=== PATIENT | female | born 2000 | race Caucasian/White ===

== ENCOUNTER 2020-06-18 08:08 | Outpatient (REF) | payer OTHER, SELFPAY | END 2020-06-18 08:09 | disposition home or self-care (01) | LOC: HO.LAB 08:08 | PROVIDERS: PCP Internal Medicine; Referring Provider Internal Medicine; Visit Provider Internal Medicine | DX: Z20.822 Contact with and (suspected) exposure to COVID-19 (principal) | CPT/HCPCS: 36415; C9803; U0003 ==

== ENCOUNTER 2020-06-26 14:17 | Outpatient (REF) | payer OTHER, SELFPAY ==
[2020-06-27 08:23] LABS: BV Int Neg Control Negative (Negative); BV Int Pos Control Positive (Positive)
[2020-06-27 09:57] LABS: C. trachomatis RNA TMA NOT DETECTED (NOT DETECTED); N. gonorrhoeae RNA TMA NOT DETECTED (NOT DETECTED)
== END 2020-06-26 14:18 | disposition home or self-care (01) ==
LOC: HO.LAB 14:17
PROVIDERS: Visit Provider Obstetrics & Gynecology
DX: Z01.419 Encounter for gynecological examination (general) (routine) without abnormal findings (principal)
CPT/HCPCS: 36415; 87480; 87491; 87510; 87591; 87660

== ENCOUNTER 2020-10-10 11:52 | Outpatient (REF) | payer OTHER, SELFPAY ==
[2020-10-13 22:46] LABS: TS Negative Control Passed; TS Panel A 1; TS Panel B 0; TS Positive Control Passed; TSpotTB Negative (SeeBelow)
== END 2020-10-10 11:53 | disposition home or self-care (01) ==
LOC: HO.LAB 11:52
PROVIDERS: PCP Internal Medicine; Visit Provider Internal Medicine
DX: Z01.84 Encounter for antibody response examination (principal)
CPT/HCPCS: 36415; 86481

== ENCOUNTER 2021-02-14 16:38 | Outpatient (REF) | payer OTHER, SELFPAY ==
--- NOTE | ~2021-02-14 | MR_ITS ---
EXAMINATION: MR BRAIN WITHOUT CONTRAST CLINICAL INFORMATION: Headaches. COMPARISON: None. TECHNIQUE: Multiplanar, multisequence imaging of the brain was performed without contrast. Limited study with motion artifacts. FINDINGS: No diffusion abnormalities are identified to suggest an acute or subacute infarct. The ventricles are normal in size. No mass effect or midline shift is seen. No brain parenchymal signal abnormality is noted. No extra-axial fluid collections are seen. The brainstem and cerebellum are normal. The gradient refocused acquisition is normal. The craniovertebral junction, marrow signal, and midline structures are normal. The major intracranial flow voids at the level of the [place] are preserved. The dural venous sinus flow voids are maintained. The mastoid air cells and paranasal sinuses are well aerated. MR/MR head/brain wo con IMPRESSION: Normal limited MRI of the brain with motion artifacts.
== END 2021-02-14 16:39 | disposition home or self-care (01) ==
LOC: HO.MRI 16:38
PROVIDERS: PCP Internal Medicine; Visit Provider Internal Medicine
DX: G44.52 New daily persistent headache (NDPH) (principal)
CPT/HCPCS: 70551

== ENCOUNTER 2021-06-13 14:46 | Outpatient (REF) | payer OTHER, SELFPAY ==
[2021-06-13 15:07] LABS: COVID-19 Test Positive (Negative); IDNOW Serial# 16C4AD1C
== END 2021-06-13 14:47 | disposition home or self-care (01) ==
LOC: HO.LAB 14:46
PROVIDERS: Visit Provider Internal Medicine
DX: Z20.822 Contact with and (suspected) exposure to COVID-19 (principal)
CPT/HCPCS: 87635; C9803

== ENCOUNTER 2021-07-02 09:17 | Outpatient (REF) | payer OTHER, SELFPAY ==
[2021-07-02 15:12] LABS: CT PCR NOT DETECTED (Not Detect.); NG PCR NOT DETECTED (Not Detect.)
[2021-07-03 08:50] LABS: BV Int Neg Control Negative (Negative); BV Int Pos Control Positive (Positive)
== END 2021-07-02 09:18 | disposition home or self-care (01) ==
LOC: HO.LAB 09:17
PROVIDERS: PCP Internal Medicine; Visit Provider Advanced Practice Midwife
DX: R10.2 Pelvic and perineal pain (principal); N89.8 Other specified noninflammatory disorders of vagina
CPT/HCPCS: 81003; 81025; 87480; 87491; 87510; 87591; 87660; 99212

== ENCOUNTER 2021-08-26 09:02 | Outpatient (REF) | payer OTHER, SELFPAY ==
[2021-08-26 18:08] LABS: CT PCR NOT DETECTED (Not Detect.); NG PCR NOT DETECTED (Not Detect.)
[2021-08-27 15:20] LABS: BV Int Neg Control Negative (Negative); BV Int Pos Control Positive (Positive)
[2021-09-12 04:28] LABS: HPV mRNA E6/E7 rflx Not Detected (Not Detected)
== END 2021-08-26 09:03 | disposition home or self-care (01) ==
LOC: HO.LAB 09:02
PROVIDERS: PCP Internal Medicine; Visit Provider Advanced Practice Midwife
DX: Z01.411 Encounter for gynecological examination (general) (routine) with abnormal findings (principal); N89.8 Other specified noninflammatory disorders of vagina; R10.2 Pelvic and perineal pain; Z20.2 Contact with and (suspected) exposure to infections with a predominantly sexual mode of transmission
CPT/HCPCS: 87480; 87491; 87510; 87591; 87624; 87660; 88142

== ENCOUNTER 2021-11-19 10:30 | Outpatient (REF) | payer OTHER, SELFPAY ==
[2021-11-19 14:50] LABS: CT PCR NOT DETECTED (Not Detect.); NG PCR NOT DETECTED (Not Detect.)
[2021-11-20 08:06] LABS: HBc Num1 0.04 S/CO (0.00-0.79); HIV AB/AG Nonreactive (Nonreactive); HIV Num 1 0.07 S/CO (0.00-0.99); Hepatitis B Core Antibody Nonreactive (Nonreactive); ~HepC Num1 0.09 S/CO (0.00-0.79); ~Hepatitis C Antibody Nonreactive (Nonreactive)
[2021-11-20 08:28] LABS: Syphilis Screen Nonreactive (Nonreactive)
[2021-11-20 10:03] LABS: BV Int Neg Control Negative (Negative); BV Int Pos Control Positive (Positive)
== END 2021-11-19 10:31 | disposition home or self-care (01) ==
LOC: HO.LAB 10:30
PROVIDERS: PCP Internal Medicine; Visit Provider Advanced Practice Midwife
DX: R10.2 Pelvic and perineal pain (principal); N89.8 Other specified noninflammatory disorders of vagina; N90.89 Other specified noninflammatory disorders of vulva and perineum; Z11.3 Encounter for screening for infections with a predominantly sexual mode of transmission; Z11.8 Encounter for screening for other infectious and parasitic diseases; Z11.4 Encounter for screening for human immunodeficiency virus [HIV]; Z11.59 Encounter for screening for other viral diseases
CPT/HCPCS: 36415; 81025; 86704; 86780; 86803; 87255; 87389; 87480; 87491; 87510; 87591; 87660; 99212

== ENCOUNTER 2022-04-03 09:28 | Outpatient (REF) | payer OTHER, SELFPAY ==
--- NOTE | ~2022-04-03 | XR_ITS ---
EXAMINATION: XR CHEST CLINICAL INFORMATION: Shortness of breath. COMPARISON: None TECHNIQUE: 2 views of the chest were obtained. FINDINGS: No significant abnormality is noted involving the heart, lungs, mediastinum, bony thorax or soft tissues. XR/XR chest 2V IMPRESSION: No acute cardiopulmonary process.
[2022-04-03 10:33] LABS: Syphilis Screen Nonreactive (Nonreactive)
[2022-04-03 10:34] LABS: Alanine Aminotransferase 18 U/L (0-31); Albumin Level 4.4 g/dL (3.5-5.0); Alkaline Phosphatase 52 U/L (39-117); Anion Gap 15 (12-20); Aspartate Amino Transferase 18 U/L (5-31); Bilirubin Total 1.4 mg/dL (0.0-1.0); Blood Urea Nitrogen 14 mg/dL (9-16); Calcium 9.1 mg/dL (8.4-10.2); Carbon Dioxide 26 mmol/L (22-29); Chloride 103 mmol/L (96-108); Cholesterol 183 mg/dL; Estimated Glomerular Filt Rate > 60; Glucose Fasting 83 mg/dL (60-99); HDL Cholesterol 88 mg/dL; LDL Cholesterol Calculated 78 mg/dl; Potassium 4.1 mmol/L (3.3-5.1); Sodium 140 mmol/L (135-145); Total Protein 7.4 g/dL (6.5-8.0); Triglycerides 86 mg/dL
[2022-04-03 10:36] LABS: HIV AB/AG Nonreactive (Nonreactive); HIV Num 1 0.08 S/CO (0.00-0.99)
[2022-04-03 11:19] LABS: Folate 16.6 ng/mL (> or = 4.0); Vitamin B12 476 pg/mL (200-900)
[2022-04-03 12:27] LABS: CT PCR NOT DETECTED (Not Detect.); NG PCR NOT DETECTED (Not Detect.)
== END 2022-04-03 09:29 | disposition home or self-care (01) ==
LOC: HO.LAB 09:28
PROVIDERS: PCP Internal Medicine; Visit Provider Internal Medicine
DX: Z00.00 Encounter for general adult medical examination without abnormal findings (principal); R06.02 Shortness of breath; R20.0 Anesthesia of skin; Z11.3 Encounter for screening for infections with a predominantly sexual mode of transmission; Z11.8 Encounter for screening for other infectious and parasitic diseases; Z11.4 Encounter for screening for human immunodeficiency virus [HIV]
CPT/HCPCS: 71046; 80053; 80061; 82607; 82746; 86780; 87389; 87491; 87591

== ENCOUNTER 2023-01-19 11:36 | Outpatient (AMB) | payer OTHER, SELFPAY ==
--- NOTE | 2023-01-19 11:43 | MHC.OFFWIV ---
Intake Vital Signs 01/19/23 11:50 Height 5 ft 7 in Weight 197 lb BMI 30.9 BP 120/72 Blood Pressure Location Lt brachial Position Sitting Pulse 94 Pulse Source Pulse Oximeter Temp 97.3 F Temp Source Temporal Artery Scan Pulse Oximetry (%) 100 Oxygen Delivery Method Room Air Intake Visit Reasons: EP ?UTI Intake Note: Pt is here c/o pressure/pain when urinating. Patient Tobacco Use Status: Never used Tobacco Allergies amoxicillin [AMOXICILLIN] Adverse Reaction (Intermediate, Verified 01/19/23 12:32) Diarrhea milk Adverse Reaction (Intermediate, Verified 01/19/23 12:32) WHOLE MILK- UPSET STOMACH Wellbutrin Allergy (Mild, Uncoded 01/19/23 12:32) unknown ANIMAL FAT Adverse Reaction (Intermediate, Uncoded 01/19/23 12:32) Diarrhea CHOCOLATE Adverse Reaction (Intermediate, Uncoded 01/19/23 12:32) DIARRHEA PEANUT BUTTER Adverse Reaction (Intermediate, Uncoded 01/19/23 12:32) Diarrhea Medication List - Last Reconciled 01/19/23 by Santino Shaffer MD desog-e.estradiol/e.estradiol 0.15-0.02 mgx21 /0.01 mg x 5 (Kariva (28)) 1 tab PO DAILY escitalopram oxalate 20 mg PO DAILY methylphenidate HCl 10 mg PO DAILY PRN phenazopyridine (Pyridium) 200 mg PO TID 3 days sulfamethoxazole-trimethoprim 800-160 mg (Bactrim DS) 1 tab PO BID 5 days Do you need a note to return to daycare/school/sports/work: No HPI EP ?UTI HPI Details Patient presents for a sick visit. Reports symptoms of increased frequency of urination, burning on urination and discomfort in the suprapubic area. Symptoms started in the past few days. No fevers or chills. No nausea or vomiting. [facility] Medical History ADD (attention deficit disorder) Mild recurrent major depression New daily persistent headache Surgical History No pertinent past surgical history Family History Mother No problems noted. Father No problems noted. Social History Housing: Apartment Alcohol intake: current Alcohol intake frequency: holidays/special occasions only Patient Tobacco Use Status: Never used Tobacco e-Cigarette/Vaping Use: Never Used Second Hand Smoke Exposure: Yes Substance Use Type: Marijuana service: No Current occupational status: employed Current occupational exposures/hazards: No Sexual orientation: Straight/Heterosexual Cognitive needs: No Hearing needs: No Vision needs: Yes Female Reproductive History Menstrual Age of Menarche: 13 Physical Exam Vital Signs: Last Vital Signs Temp 97.3 F 01/19/23 11:50 Pulse 94 01/19/23 11:50 BP 120/72 01/19/23 11:50 Pulse Ox 100 01/19/23 11:50 Oxygen Delivery Method Room Air 01/19/23 11:50 BMI result Body Mass Index 30.9 Const General: cooperative and healthy appearing Nutritional Appearance: well nourished Orientation/consciousness: patient oriented x3 Limitations: no limitations HEENT Head: Yes normal to inspection Eyes General: appearance normal, both eyes and all related structures Neck Neck: Yes normal visual inspection Chest Chest palpation & inspection: normal palpation of entire chest wall Resp Effort & Inspection: normal respiratory effort General: Yes bladder normal to palpation and Yes no CVA tenderness Bimanual exam- vagina & uterus: bladder normal to palpation Back/Spine/Pelvis Back: no CVA tenderness Neuro General: patient oriented x3 Results AMB Urinalysis, Automated UA Leukoctes 0 Robert/uL Last Edit by Areli Cao CMA on 01/19/23 11:53 UA Nitrite Negative Last Edit by Areli Cao CMA on 01/19/23 11:53 UA Urobilinogen 0.2 mg/dL Last Edit by Areli Cao CMA on 01/19/23 11:53 UA Protein 0 mg/dL Last Edit by Areli Cao CMA on 01/19/23 11:53 UA pH 6.0 Last Edit by Areli Cao CMA on 01/19/23 11:53 UA Blood 80 Kojo/uL Last Edit by Areli Cao CMA on 01/19/23 11:53 UA Specific [place] 1.030 Last Edit by Areli Cao CMA on 01/19/23 11:53 UA Ketone Negative Last Edit by Areli Cao CMA on 01/19/23 11:53 UA Bilirubin 0 mg/dL Last Edit by Areli Cao CMA on 01/19/23 11:53 UA Glucose 0 mg/dL Last Edit by Areli Cao CMA on 01/19/23 11:53 AMB Rapid Strep AMB Rapid Strep Cancelled Last Edit by Areli aCo CMA on 01/19/23 12:02 AMB Rapid Strep previously reported as Negative Areli Cao 01/19/23 12:02 CANCELLED strep was put in for the wrong person Results Reviewed Results Reviewed: Laboratory Last Values Urine pH (Auto) 6.0 01/19/23 11:51 Specific [place] (Auto) 1.030 01/19/23 11:51 Urine Protein (Auto) 0 mg/dL 01/19/23 11:51 Glucose (UA)(Auto) 0 mg/dL 01/19/23 11:51 Urine Ketones (Auto) Negative 01/19/23 11:51 Urine Blood (Auto) 80 Kojo/uL 01/19/23 11:51 Urine Nitrite (Auto) Negative 01/19/23 11:51 Urine Bilirubin (Auto) 0 mg/dL 01/19/23 11:51 Urine Urobilinogen (Auto) 0.2 mg/dL 01/19/23 11:51 Leukocyte Esterase (Auto) 0 Robert/uL 01/19/23 11:51 Strep Scn Rapid Clinic Cancelled 01/19/23 11:51 Assessment & Plan Assessment & Plan (1) Urinary tract infection: Code(s): N39.0 - Urinary tract infection, site not specified Plan: Take antibiotics and Pyridium as directed. Increase fluid intake. If symptoms of burning persist, new onset of fever or lower back pain, to follow-up at the clinic. Orders: Orders AMB Urinalysis Automated Today Z13.9 - Encounter for screening, unspecified Coding Level of Care Code Est Pt Level 3 (07210) Diagnoses Urinary tract infection N39.0
[2023-01-19 11:50] VITALS: BP 120/72; PULSE 94; TEMP 36.3; O2SAT 100; BMI 30.9
== END 2023-01-19 12:49 | disposition home or self-care (01) ==
PROVIDERS: PCP Internal Medicine; Visit Provider Internal Medicine
DX: N39.0 Urinary tract infection, site not specified (principal)
CPT/HCPCS: 81003; 99213

== ENCOUNTER 2023-02-03 09:35 | Outpatient (AMB) | payer OTHER, SELFPAY ==
--- NOTE | 2023-02-03 09:42 | MHC.OFFVIS ---
Intake Vital Signs 02/03/23 09:47 Height 5 ft 6 in Weight 194 lb BMI 31.3 BP 114/62 Intake Visit Reasons: ? UTI Intake Note: pt c/o pelvic pressure and cramping, recent UTI The patient agreed to use of a medical education coordinator during this encounter. Scribed for NASIMA Mayorga by Maria Del Rosario Gupta, medical education coordinator, on 02/03/2023 at 10:04 am EST. Service Line Coordinator: Service Line Coordinator Present (Belinda) Allergies amoxicillin [AMOXICILLIN] Adverse Reaction (Intermediate, Verified 02/03/23 09:49) Diarrhea milk Adverse Reaction (Intermediate, Verified 02/03/23 09:49) WHOLE MILK- UPSET STOMACH Wellbutrin Allergy (Mild, Uncoded 01/19/23 12:32) unknown ANIMAL FAT Adverse Reaction (Intermediate, Uncoded 01/19/23 12:32) Diarrhea CHOCOLATE Adverse Reaction (Intermediate, Uncoded 01/19/23 12:32) DIARRHEA PEANUT BUTTER Adverse Reaction (Intermediate, Uncoded 01/19/23 12:32) Diarrhea Is last menstrual period known: Yes Last menstrual period: 01/27/23 HPI HPI Comments History of Present Illness Details She is here for STD testing due to pelvic pain, vaginal odor and painful intimacy. H/o of UTI treated 01/13, at walk in clinic, urine dip was noted with blood. No culture/sensitivities obtained. Pt. reports she did not have a pelvic examination at that visit. She reports completing her antibiotics. Admits vaginal odors and pelvic pain but believes its due to her menses; takes Tylenol for pain management. Currently on her menses; started Thursday. Denies urinary symptoms or vaginal burning. Reports irregular menses due to forgetting to take OCP. Reports UPI 2 >weeks ago, pain during intimacy and has sensitivity to latex condoms; uses lambskin condoms. She denies any contraindications to control such as: migraines with aura, history of DVT or pulmonary emboli, high blood pressure, liver disease, thrombolic disorders, Lupus, +ANALY, or smoking. She is concerned re: weight gain with BC use. [facility] Medical History (Updated 02/03/23 @ 10:35 by Maria Del Rosario Gupta) Initiation of Depo Provera Dyspareunia, female New daily persistent headache Mild recurrent major depression ADD (attention deficit disorder) Surgical History No pertinent past surgical history Family History Mother No problems noted. Father No problems noted. Social History Housing: Apartment Alcohol intake: current Alcohol intake frequency: holidays/special occasions only Patient Tobacco Use Status: Never used Tobacco e-Cigarette/Vaping Use: Never Used Second Hand Smoke Exposure: Yes Substance Use Type: Marijuana service: No Current occupational status: employed Current occupational exposures/hazards: No Sexual orientation: Straight/Heterosexual Cognitive needs: No Hearing needs: No Vision needs: Yes Female Reproductive History Menstrual Age of Menarche: 13 Date of last menstrual period: 01/27/23 Physical Exam Vital Signs: Last Vital Signs BP 114/62 02/03/23 09:47 BMI result Body Mass Index 31.3 Const General: cooperative, healthy appearing, comfortable, no acute distress, well developed, alert and awake Other: General: Yes bladder normal to palpation External Female Exam: normal external appearance and normal appearance of the urethra Speculum Exam - Vagina: normal appearance of the vagina, normal palpation and normal vaginal discharge Speculum Exam - Cervix: normal appearance of the cervix, normal palpation and Other cervical findings present (moderate amount of blood present) Bimanual exam- vagina & uterus: normal bimanual exam, normal palpation, bladder normal to palpation and normal palpation Bimanual Exam- Adnexa, other: normal adnexae and no masses Results AMB Urinalysis, Automated UA Leukoctes 0 Robert/uL Last Edit by CAT Botello on 02/03/23 09:58 UA Nitrite Negative Last Edit by CAT Botello on 02/03/23 09:58 UA Urobilinogen 0 mg/dL Last Edit by CAT Botello on 02/03/23 09:58 UA Protein 0 mg/dL Last Edit by CAT Botello on 02/03/23 09:58 UA pH 6.0 Last Edit by CAT Botello on 02/03/23 09:58 UA Blood 2 Kojo/uL Last Edit by LaniCAT Perez on 02/03/23 09:58 UA Specific [place] 1.010 Last Edit by CAT Botello on 02/03/23 09:58 UA Ketone Negative Last Edit by LaniMAHNAZ PerezA on 02/03/23 09:58 UA Bilirubin 0 mg/dL Last Edit by MAHNAZ BotelloA on 02/03/23 09:58 UA Glucose 0 mg/dL Last Edit by Lani Todd A on 02/03/23 09:58 Results Reviewed Results Reviewed: Laboratory Last Values Urine pH (Auto) 6.0 02/03/23 09:57 Specific [place] (Auto) 1.010 02/03/23 09:57 Urine Protein (Auto) 0 mg/dL 02/03/23 09:57 Glucose (UA)(Auto) 0 mg/dL 02/03/23 09:57 Urine Ketones (Auto) Negative 02/03/23 09:57 Urine Blood (Auto) 2 Kojo/uL 02/03/23 09:57 Urine Nitrite (Auto) Negative 02/03/23 09:57 Urine Bilirubin (Auto) 0 mg/dL 02/03/23 09:57 Urine Urobilinogen (Auto) 0 mg/dL 02/03/23 09:57 Leukocyte Esterase (Auto) 0 Robert/uL 02/03/23 09:57 Assessment & Plan Assessment & Plan (1) control counseling: Code(s): Z30.09 - Encounter for other general counseling and advice on contraception Plan: Discussed: Advised to use 3 Advil 200 mg (600 milligrams) with food for menses cramping. Reviewed risks and benefits of different BC options including Depo. She opts for Depo Provera. Instructed to monitor periods and contact the office with any concerns. Encouraged a health, well balanced diet and regular exercise. Encouraged to use condoms or abstinence for STD and prevention. Rx for Depo sent to [facility] pharmacy. Instructed to hand picker rx and bring to office with her. Return for RN for initial Depo injection tomorrow, and every 12 weeks thereafter. She was instructed to go to ER if she develops loss of vision, severe headache that does not resolve, chest pain, difficulty breathing, abdominal pain, or pain or tenderness in extremity or new breast lumps. Call the office with any concerns. All of her questions and concerns were addressed to the best of my ability and shared decision making. She is agreeable to plan of care. (2) Vaginal odor: Code(s): N89.8 - Other specified noninflammatory disorders of vagina Plan: BV testing and GC/CT panel done today. Await results and treat accordingly. (3) Pelvic pain: Code(s): R10.2 - Pelvic and perineal pain (4) Dyspareunia, female: Code(s): N94.10 - Unspecified dyspareunia (5) Initiation of Depo Provera: Code(s): Z30.013 - Encounter for initial prescription of injectable contraceptive Orders: Orders AMB Urinalysis Automated Today R10.2 - Pelvic and perineal pain Bacterial Vaginosis Panel Today N89.8 - Other specified noninflammatory disorders of vagina, R10.2 - Pelvic and perineal pain CT NG by PCR Today N89.8 - Other specified noninflammatory disorders of vagina, R10.2 - Pelvic and perineal pain Medications: New medroxyprogesterone (Depo-Provera) 150 mg IM [id number] 1 mL 1RF Discontinued desog-e.estradiol/e.estradiol 0.15-0.02 mgx21 /0.01 mg x 5 (Yeimi (28)) Discontinued Reason: No Longer Medically Relevant 1 tab PO DAILY 84 tabs 0RF Coding Level of Care Code Est Pt Level 4 (10929) Diagnoses control counseling Z30.09 Vaginal odor N89.8 Pelvic pain R10.2 Dyspareunia, female N94.10 Initiation of Depo Provera Z30.013
[2023-02-03 09:47] VITALS: BP 114/62; BMI 31.3
== END 2023-02-03 10:27 | disposition home or self-care (01) ==
PROVIDERS: PCP Internal Medicine; Visit Provider Advanced Practice Midwife
DX: Z30.09 Encounter for other general counseling and advice on contraception (principal); N89.8 Other specified noninflammatory disorders of vagina; R10.2 Pelvic and perineal pain; N94.10 Unspecified dyspareunia; Z30.013 Encounter for initial prescription of injectable contraceptive
CPT/HCPCS: 99214

== ENCOUNTER 2023-02-03 09:35 | Outpatient (REF) | payer OTHER, SELFPAY ==
[2023-02-04 07:23] LABS: CT PCR NOT DETECTED (Not Detect.); NG PCR NOT DETECTED (Not Detect.)
[2023-02-04 15:11] LABS: BV Int Neg Control Negative (Negative); BV Int Pos Control Positive (Positive)
== END 2023-02-03 09:36 | disposition home or self-care (01) ==
LOC: HO.LAB 09:35
PROVIDERS: PCP Internal Medicine; Visit Provider Advanced Practice Midwife
DX: Z30.09 Encounter for other general counseling and advice on contraception (principal); R10.2 Pelvic and perineal pain; N89.8 Other specified noninflammatory disorders of vagina; N94.10 Unspecified dyspareunia
CPT/HCPCS: 0353U; 81003; 87480; 87510; 87660; 99212

== ENCOUNTER 2023-02-03 10:30 | Outpatient (REF) | payer OTHER, SELFPAY | END 2023-02-03 10:31 | disposition home or self-care (01) | LOC: HO.LNP 10:30 | PROVIDERS: Visit Provider Advanced Practice Midwife | DX: Z13.89 Encounter for screening for other disorder (principal) ==

== ENCOUNTER 2023-04-14 17:29 | Outpatient (AMB) | payer OTHER, SELFPAY ==
[2023-04-14 17:30] VITALS: BP 110/72; BMI 31.5
--- NOTE | 2023-04-14 17:30 | MHC.PC.OV ---
Vital Signs 04/14/23 17:30 Height 5 ft 6 in Weight 195 lb BMI 31.5 BP 110/72 Blood Pressure Location Lt brachial Position Sitting Intake Visit Reasons: Annual Exam Intake Note: Patient here for a physcal exam [employer] Lead Required: No Accompanied by: Self / Same As Patient Allergies amoxicillin [AMOXICILLIN] Adverse Reaction (Intermediate, Verified 04/14/23 17:38) Diarrhea milk Adverse Reaction (Intermediate, Verified 04/14/23 17:38) WHOLE MILK- UPSET STOMACH Wellbutrin Allergy (Mild, Uncoded 04/14/23 17:38) unknown ANIMAL FAT Adverse Reaction (Intermediate, Uncoded 04/14/23 17:38) Diarrhea CHOCOLATE Adverse Reaction (Intermediate, Uncoded 04/14/23 17:38) DIARRHEA PEANUT BUTTER Adverse Reaction (Intermediate, Uncoded 04/14/23 17:38) Diarrhea Medication List - Last Reconciled 04/14/23 by Sobia Ralph MD escitalopram oxalate 20 mg PO DAILY Tobacco use date assessed: 04/14/23 Dental Screening Dental Screen Date: 04/14/23 Did you have a dental visit in the last 12 months?: Yes Did you have a dental problem in the last 6 months where you did not have access to dental care?: No Was dental information given to patient?: Patient has dentist HPI HPI Comments History of Present Illness Details This is a 22-year-old female that comes for her physical exam. Last Pap smear was 2021. Chest pain when lifting things most likely due to costochondritis. EKG will be done to rule out hard origin. She has moderate major depression with no suicidal thoughts and this is follow by Psychiatry. [facility] Medical History (Updated 04/15/23 @ 08:03 by Sobia Ralph MD) Initiation of Depo Provera Dyspareunia, female New daily persistent headache Mild recurrent major depression ADD (attention deficit disorder) Surgical History No pertinent past surgical history Family History Mother No problems noted. Father No problems noted. Housing: Apartment Alcohol intake: current Alcohol intake frequency: holidays/special occasions only Patient Tobacco Use Status: Never used Tobacco e-Cigarette/Vaping Use: Never Used Second Hand Smoke Exposure: Yes Substance Use Type: Marijuana service: No Current occupational status: employed Current occupational exposures/hazards: No Sexual orientation: Straight/Heterosexual Cognitive needs: No Hearing needs: No Vision needs: Yes Female Reproductive History Menstrual Age of Menarche: 13 Questionnaire PHQ-9 Over the last 2 weeks, how often have you been bothered by any of the following problems? 1. Little interest or pleasure in doing things: nearly every day 2. Feeling down, depressed, or hopeless: more than half the days 3. Trouble falling or staying asleep, or sleeping too much: nearly every day 4. Feeling tired or having little energy: nearly every day 5. Poor appetite or overeating: more than half the days 6. Feeling bad about yourself - or that you are a failure or have let yourself or your family down: several days 7. Trouble concentrating on things, such as reading the newspaper or watching television: nearly every day 8. Moving or speaking so slowly that other people could have noticed. Or the opposite - being so fidgety or restless that you have been moving around a lot more than usual: nearly every day 9. Thoughts that you would be better off or of hurting yourself in some way: not at all Total score: 20 Depression Screening Interpretation: Positive Depression Screening Follow-up: Existing condition, In treatment and Community Mental Health Worker F/U Depression Screening Done: Yes 01409 - PHQ-9 Billing: Yes Source: Developed by Drs. Dae Griffin, Fabiola Persaud, Dmitry Walker and colleagues, with an educational jabier from [employer]. Thrive Questionnaire Date Thrive assessed: 04/14/23 I am a: Patient What is your living situation today?: I have a steady place to live Within the past 12 months, did the food you bought not last and you didn't have the money to get more?: Never true Within the past 12 months, did you worry whether your food would run out before you got money to buy more?: Never true Do you have trouble paying for medicines?: No Do you have trouble getting transportation to medical appointments?: No Do you have trouble paying your heating and electricity bill?: No Do you have trouble taking care of your child, family member or friend?: No Do you have trouble with day-to-day activities such as bathing, preparing meals, shopping, managing finances, etc.?: No Are you currently unemployed and looking for a job?: No Are you interested in more education?: No Please select the resources that you would like help with: None Currently or been in a relationship where the following occur: I choose not to answer this question AUDIT C Alcohol Use Questionnaire (AUDIT-C) 1. How often do you have a drink containing alcohol?: Monthly or less 2. How many drinks containing alcohol do you have on a typical day when you are drinking?: 1 or 2 3. How often do you have six or more drinks on one occasion?: Never Total Score: 1 KRYSTEN-7 AMB Questionnaire KRYSTEN-7 Date KRYSTEN - 7 assessed: 04/14/23 Feeling nervous, anxious, or on edge: 3 = Nearly every day Not being able to stop or control worryin = Several days Worrying too much about different things: 2 = More than half the days Trouble relaxin = More than half the days Being so restless that it is hard to sit still: 0 = Not at all Becoming easily annoyed or irritable: 3 = Nearly every day Feeling afraid as if something awful might happen: 1 = Several days Total KRYSTEN-7 score (0-4 normal; 5-9 mild; 10-14 moderate; 15-21 severe): 12 Source: Developed by Drs. Dae Griffin, Fabiola Persaud, Dmitry Walker and colleagues, with an educational jabier from [employer]. KRYSTEN-7 Assessment Billing KRYSTEN-7 Assessment Tool: KRYSTEN-7 Assessment 44348 Review of Systems Const All systems reviewed & are unremarkable except as noted in HPI and below Eyes Reports no additional complaints, Denies change in vision and Denies other visual disturbances Card Denies chest pain at rest, Denies chest pain with activity, Denies edema, Denies irregular heart rhythm, Denies claudication, Denies dyspnea, Denies dyspnea on exertion, Denies orthopnea, Denies paroxysmal nocturnal dyspnea and Denies slow heart rate Resp Denies cough, Denies dyspnea and Denies dyspnea on exertion GI Denies abdominal pain, Denies change in bowel habits, Denies excessive flatus, Denies nausea and Denies vomiting Denies urinary incontinence, Denies urinary hesitancy and Denies urinary urgency Musc Denies abnormal gait, Denies atrophy, Denies deformity and Denies limited range of motion Skin/Breast Denies bleeding lesions, Denies changing lesions and Denies rash Neuro Denies abnormal gait and Denies lack of coordination Physical exam (Primary Care) Vital Signs: Last Vital Signs BP 110/72 04/14/23 17:30 BMI result Body Mass Index 31.5 Tobacco/Smoking Status: Tobacco use Status Tobacco use date assessed 04/14/23 04/14/23 17:37 Patient Tobacco Use Status Never used Tobacco 04/14/23 17:37 Tobacco use type 01/30/21 14:51 e-Cigarette/Vaping Use Never Used 04/14/23 17:37 PHQ-9: PHQ-9 Score PHQ-9: Total score 20 04/14/23 17:44 Depression Screening Interpretation: Positive Depression Screening Follow-up: Existing condition, In treatment and Community Mental Health Worker F/U Thrive Assessment: Date of Thrive Assessment Date Thrive assessed 04/14/23 04/14/23 17:37 Currently or been in a relationship where the following occur: I choose not to answer this question Const Orientation/consciousness: patient oriented x3 HENMT Head: Yes normal to inspection, Yes normocephalic and Yes atraumatic Ears: external ears normal Eyes General: appearance normal, both eyes and all related structures Eyelids: Yes eyelids normal Conjunctivae: conjunctivae normal Neck Neck: Yes normal visual inspection and Yes supple Resp Effort & Inspection: normal respiratory effort Auscultation: clear to auscultation bilaterally Cardio Jugular venous distension: no JVD Rate: regular rate Rhythm: regular rhythm Heart sounds: S1 normal heart sound present and S2 normal heart sound present GI Inspection: Yes normal to inspection Palpation (GI): Soft to palpation and nontender Auscultation: normal bowel sounds Skin General skin exam: no rashes or lesions noted Neuro General: patient oriented x3 and no focal motor deficits Extrem General: Yes full ROM Psych Appearance: grossly normal Office Procedures Flu Questionnaire Does the patient have a severe egg allergy?: No Immunizations flu vacc [id number] 6mos up(PF) 60 mcg(15 mcgx4)/0.5 mL IM syringe Performing Provider: Sobia Ralph MD [facility] Documented (not given) by: CAT Gacria on 04/14/23 17:37 Reason Not Given: Patient Refused Assessment and Plan Assessment & Plan (1) Physical exam: Code(s): Z00.00 - Encounter for general adult medical examination without abnormal findings Plan: Repeat in a year. (2) Moderate major depression: Code(s): F32.1 - Major depressive disorder, single episode, moderate Plan: Continue with escitalopram. Follow-up with psychiatry. Orders: Orders ECG 12 lead EKG 04/14/23 R07.9 - Chest pain, unspecified Influenza [id number] Immunization 04/14/23 Z23 - Encounter for immunization US pelvic and transvaginal 04/14/23 R10.2 - Pelvic and perineal pain Coding Level of Care Code Est Pt Prev Care 18-39y(33297) Diagnoses Physical exam Z00.00 Moderate major depression F32.1 Additional Codes KRYSTEN-7 Assessment Billing - KRYSTEN-7 Assessment Tool: KRYSTEN-7 Assessment 98125 ([id number]) Time Spent (min) 33
== END 2023-04-14 17:49 | disposition home or self-care (01) ==
LOC: HO.HMGH 17:29
PROVIDERS: PCP Internal Medicine; Visit Provider Internal Medicine
DX: Z00.00 Encounter for general adult medical examination without abnormal findings (principal); F33.1 Major depressive disorder, recurrent, moderate; R07.89 Other chest pain
CPT/HCPCS: 96127; 99395

== ENCOUNTER 2023-05-13 14:18 | Outpatient (AMB) | payer OTHER, SELFPAY ==
[2023-05-13 14:29] VITALS: BP 118/80; BMI 30.5
--- NOTE | 2023-05-13 14:29 | MHC.PC.OV ---
Vital Signs 05/13/23 14:29 Height 5 ft 6 in Weight 189 lb BMI 30.5 BP 118/80 Blood Pressure Location Lt brachial Position Sitting Intake Visit Reasons: months of discomfort, left ED prior to being seen Intake Note: Patient here c/o headaches, chest discomfort, numb feeling on and off through body, SOB going on for a few months, test request Document Photographer Required: No Accompanied by: Self / Same As Patient Allergies amoxicillin [AMOXICILLIN] Adverse Reaction (Intermediate, Verified 05/13/23 14:55) Diarrhea milk Adverse Reaction (Intermediate, Verified 05/13/23 14:55) WHOLE MILK- UPSET STOMACH Wellbutrin Allergy (Mild, Uncoded 05/13/23 14:55) unknown ANIMAL FAT Adverse Reaction (Intermediate, Uncoded 05/13/23 14:55) Diarrhea CHOCOLATE Adverse Reaction (Intermediate, Uncoded 05/13/23 14:55) DIARRHEA PEANUT BUTTER Adverse Reaction (Intermediate, Uncoded 05/13/23 14:55) Diarrhea Medication List - Last Reconciled 05/13/23 by Sobia Ralph MD escitalopram oxalate 20 mg PO DAILY Tobacco use date assessed: 04/14/23 HPI HPI Comments History of Present Illness Details This is a 22-year-old female with moderate major depression that comes today complaining of chronic headaches that happens almost every day, difficulty swallowing solids and chest pain located in the middle the chest happens at rest. Depression stable with escitalopram. I suggest to stop smoking marijuana for few weeks to see if the symptoms improve. RN swallow order. Chest x-ray and EKG order for chest pain. [facility] Medical History (Updated 05/13/23 @ 14:59 by Sobia Ralph MD) Initiation of Depo Provera Dyspareunia, female New daily persistent headache Mild recurrent major depression ADD (attention deficit disorder) Surgical History No pertinent past surgical history Family History Mother No problems noted. Father No problems noted. Social History Housing: Apartment Alcohol intake: current Alcohol intake frequency: holidays/special occasions only Patient Tobacco Use Status: Never used Tobacco e-Cigarette/Vaping Use: Never Used Second Hand Smoke Exposure: Yes Substance Use Type: Marijuana service: No Current occupational status: employed Current occupational exposures/hazards: No Sexual orientation: Straight/Heterosexual Cognitive needs: No Hearing needs: No Vision needs: Yes Female Reproductive History Menstrual Age of Menarche: 13 Questionnaire Thrive Questionnaire Date Thrive assessed: 04/14/23 KRYSTEN-7 AMB Questionnaire KRYSTEN-7 Date KRYSTEN - 7 assessed: 04/14/23 Source: Developed by Drs. Dae Griffin, Fabiola Persaud, Dmitry Walker and colleagues, with an educational jabier from [employer] Review of Systems Const All systems reviewed & are unremarkable except as noted in HPI and below Reports headache(s) Eyes Reports no additional complaints, Denies change in vision and Denies other visual disturbances ENT Reports headache(s) Card Reports chest pain at rest, Reports chest pain with activity, Denies edema, Denies irregular heart rhythm, Denies claudication, Reports dyspnea, Reports dyspnea on exertion, Denies orthopnea, Denies paroxysmal nocturnal dyspnea and Denies slow heart rate Resp Denies cough, Reports dyspnea and Reports dyspnea on exertion GI Denies abdominal pain, Denies change in bowel habits, Denies excessive flatus, Denies nausea and Denies vomiting Denies urinary incontinence, Denies urinary hesitancy and Denies urinary urgency Musc Denies abnormal gait, Denies atrophy, Denies deformity and Denies limited range of motion Skin/Breast Denies bleeding lesions, Denies changing lesions and Denies rash Neuro Denies abnormal gait, Denies behavioral changes, Reports headache(s) and Denies lack of coordination Psych Denies behavioral changes Physical exam (Primary Care) Vital Signs: Last Vital Signs BP 118/80 05/13/23 14:29 BMI result Body Mass Index 30.5 Tobacco/Smoking Status: Tobacco use Status Tobacco use date assessed 04/14/23 05/13/23 14:33 Patient Tobacco Use Status Never used Tobacco 05/13/23 14:33 Tobacco use type 01/30/21 14:51 e-Cigarette/Vaping Use Never Used 05/13/23 14:33 Thrive Assessment: Date of Thrive Assessment Date Thrive assessed 04/14/23 05/13/23 14:33 Eyes General: appearance normal, both eyes and all related structures Eyelids: Yes eyelids normal Conjunctivae: conjunctivae normal Neck Neck: Yes normal visual inspection and Yes supple Resp Effort & Inspection: normal respiratory effort Auscultation: clear to auscultation bilaterally Cardio Jugular venous distension: no JVD Rate: regular rate Rhythm: regular rhythm Heart sounds: S1 normal heart sound present and S2 normal heart sound present Extrem General: Yes full ROM Results AMB Test Urine AMB Test Urine Negative Last Edit by CAT Garcia on 05/13/23 15:09 Results Reviewed Results Reviewed: Laboratory Last Values Tst Clinic Negative 05/13/23 15:08 Assessment and Plan Assessment & Plan (1) Moderate major depression: Code(s): F32.1 - Major depressive disorder, single episode, moderate Plan: Continue escitalopram. (2) Dysphagia: Code(s): R13.10 - Dysphagia, unspecified Plan: Barium swallow ordered (3) Chronic headaches: Code(s): R51.9 - Headache, unspecified; G89.29 - Other chronic pain Plan: Take [id number] Tylenol as needed. (4) Chest pain: Code(s): R07.9 - Chest pain, unspecified Plan: EKG and chest x-ray ordered. Orders: Orders FL barium swallow Today R13.10 - Dysphagia, unspecified Thyroid Stimulating Hormone Today R13.10 - Dysphagia, unspecified Comprehensive Met. Panel Today G89.29 - Other chronic pain, R51.9 - Headache, unspecified AMB HCG Urine Test Today R10.2 - Pelvic and perineal pain XR chest 2V Today R07.9 - Chest pain, unspecified Complete Blood Count Auto Diff Today G89.29 - Other chronic pain, R51.9 - Headache, unspecified Coding Level of Care Code Est Pt Level 4 (39385) Diagnoses Moderate major depression F32.1 Dysphagia R13.10 Chronic headaches R51.9; G89.29 Chest pain R07.9 Time Spent (min) 22
== END 2023-05-13 15:13 | disposition home or self-care (01) ==
LOC: HO.HMGH 14:18
PROVIDERS: PCP Internal Medicine; Visit Provider Internal Medicine
DX: F32.1 Major depressive disorder, single episode, moderate (principal); R13.10 Dysphagia, unspecified; R51.9 Headache, unspecified; G89.29 Other chronic pain; R07.9 Chest pain, unspecified; R10.2 Pelvic and perineal pain
CPT/HCPCS: 81025; 99214

== ENCOUNTER 2023-05-13 15:19 | Outpatient (REF) | payer OTHER, SELFPAY ==
--- NOTE | ~2023-05-13 | XR_ITS ---
EXAMINATION: XR CHEST CLINICAL INFORMATION: Chest pain COMPARISON: 04/03/2022 TECHNIQUE: 2 views of the chest were obtained. FINDINGS: No significant abnormality is noted involving the heart, lungs, mediastinum, bony thorax or soft tissues. XR/XR chest 2V IMPRESSION: Unremarkable examination.
[2023-05-13 15:29] LABS: MANUAL DIFF FLAG NO
[2023-05-13 15:55] LABS: Basophils Absolute Auto 0.1 X10*3/uL (0.0-0.2); Basophils Percent Auto 0.8 % (0-2); Eosinophils Absolute Auto 0.1 X10*3/uL (0.0-0.4); Eosinophils Percent Auto 0.9 % (0-4); Hematocrit 38.7 % (37.0-47.0); Hemoglobin 12.3 g/dl (12.0-16.0); Imm Gran Abs Auto 0.04 X10*3/uL (0.00-0.03); Imm Gran Pct Auto 0.4 % (0.0-0.4); Lymphocytes Absolute Auto 3.2 X10*3/uL (1.2-4.9); Lymphocytes Percent Auto 32.2 % (20-40); Mean Corpuscular HGB Conc 31.8 g/dl (31.0-35.0); Mean Corpuscular Volume 88.2 fL (80.0-98.0); Mean Platelet Volume 10.8 fL (9.4-12.3); Monocytes Percent Auto 10.1 % (2-11); Neutrophils Absolute Auto 5.4 x10*3/uL (2.0-8.3); Neutrophils Percent Auto 55.6 % (45-73); Platelet Count 330 X10*3/uL (160-400); Red Blood Count 4.39 X10*6/uL (4.20-5.50); Red Cell Distribution Width 13.6 % (11.0-16.0); White Blood Count 9.8 X10*3/uL (4.8-10.8)
[2023-05-13 16:18] LABS: Alanine Aminotransferase 13 U/L (0-31); Albumin Level 4.6 g/dL (3.5-5.0); Alkaline Phosphatase 58 U/L (39-117); Anion Gap 12 (12-20); Aspartate Amino Transferase 16 U/L (5-31); Bilirubin Total 0.7 mg/dL (0.0-1.0); Blood Urea Nitrogen 9 mg/dL (9-16); Calcium 9.2 mg/dL (8.4-10.2); Carbon Dioxide 26 mmol/L (22-29); Chloride 107 mmol/L (96-108); Estimated Glomerular Filt Rate > 60; Glucose Random 91 mg/dL (60-115); Potassium 4.2 mmol/L (3.3-5.1); Sodium 141 mmol/L (135-145); Total Protein 7.6 g/dL (6.5-8.0)
[2023-05-13 16:36] LABS: Thyroid Stimulating Hormone 1.25 uIU/mL (0.32-4.0)
== END 2023-05-13 15:20 | disposition home or self-care (01) ==
LOC: HO.LAB 15:19
PROVIDERS: PCP Internal Medicine; Visit Provider Internal Medicine
DX: R07.9 Chest pain, unspecified (principal); R13.10 Dysphagia, unspecified; R51.9 Headache, unspecified; G89.29 Other chronic pain
CPT/HCPCS: 36415; 71046; 80053; 84443; 85025

== ENCOUNTER 2023-05-28 16:19 | Outpatient (REF) | payer OTHER, SELFPAY | END 2023-05-28 16:20 | disposition home or self-care (01) | LOC: HO.LAB 16:19 | PROVIDERS: PCP Internal Medicine; Visit Provider Internal Medicine | DX: R39.9 Unspecified symptoms and signs involving the genitourinary system (principal) | CPT/HCPCS: 81001 ==

== ENCOUNTER 2023-06-15 10:55 | Outpatient (AMB) | payer OTHER, SELFPAY ==
--- NOTE | 2023-06-15 11:54 | AM.OFFWIN_ITS ---
Intake Vital Signs 06/15/23 11:55 Height 5 ft 6 in Weight 189 lb BMI 30.5 BP 112/64 Blood Pressure Location Rt brachial Position Sitting Pulse 87 Pulse Source Pulse Oximeter Temp 98.3 F Temp Source Oral Pulse Oximetry (%) 98 Oxygen Delivery Method Room Air Intake Visit Reasons: EP Diff Breathing, Congestion, ears (masked) Intake Note: pt is here for c.o congestion, ear discomfort, and difficulty breathing Patient Tobacco Use Status: Never used Tobacco Allergies amoxicillin [AMOXICILLIN] Adverse Reaction (Intermediate, Verified 06/15/23 11:56) Diarrhea milk Adverse Reaction (Intermediate, Verified 06/15/23 11:56) WHOLE MILK- UPSET STOMACH Wellbutrin Allergy (Mild, Uncoded 05/13/23 14:55) unknown ANIMAL FAT Adverse Reaction (Intermediate, Uncoded 05/13/23 14:55) Diarrhea CHOCOLATE Adverse Reaction (Intermediate, Uncoded 05/13/23 14:55) DIARRHEA PEANUT BUTTER Adverse Reaction (Intermediate, Uncoded 05/13/23 14:55) Diarrhea Do you need a note to return to daycare/school/sports/work: Yes HPI HPI Comments History of Present Illness Details Patient presents to the walk in for 1 week nasal congestion and feeling like ears are blocked. Sister was sick with same Denies fever, chest pain, shortness of breath, palpitations, syncope, weakness Denies headache, ear pain, sore throat. Has been taking OTC dayquil and nyquil Called out sick from work yesterday and today, requesting work note [facility], [facility] Medical History Initiation of Depo Provera Dyspareunia, female New daily persistent headache Mild recurrent major depression ADD (attention deficit disorder) Surgical History No pertinent past surgical history Family History Mother No problems noted. Father No problems noted. Social History Housing: Apartment Alcohol intake: current Alcohol intake frequency: holidays/special occasions only Patient Tobacco Use Status: Never used Tobacco e-Cigarette/Vaping Use: Never Used Second Hand Smoke Exposure: Yes Substance Use Type: Marijuana service: No Current occupational status: employed Current occupational exposures/hazards: No Sexual orientation: Straight/Heterosexual Cognitive needs: No Hearing needs: No Vision needs: Yes Female Reproductive History Menstrual Age of Menarche: 13 Review of Systems Const All systems reviewed & are unremarkable except as noted in HPI and below Physical Exam Vital Signs: Last Vital Signs Temp 98.3 F 06/15/23 11:55 Pulse 87 06/15/23 11:55 BP 112/64 06/15/23 11:55 Pulse Ox 98 06/15/23 11:55 Oxygen Delivery Method Room Air 06/15/23 11:55 BMI result Body Mass Index 30.5 General: awake, alert, oriented. Answers questions appropriately. Fully engaged in examination. Skin: warm, dry, intact HEENT: TMs intact bilaterally, without erythema or exudate. Posterior pharynx without erythema or exudate. Sclera without icterus or injection. Cardiac: External chest normal in appearance. Respiratory: LSCTAB. Abdomen: without gross distension. Neurological: Oriented to person, place, time and situation. Thought process intact. Psychiatric: Appropriate mood and affect. Good judgment and insight. Assessment & Plan Assessment & Plan (1) URI (upper respiratory infection): Code(s): J06.9 - Acute upper respiratory infection, unspecified Plan URI, no abx warranted. Rest, drink plenty of fluids, tylenol or motrin as needed. Recommend taking OTC nasal decongestants or flonase. Work note provided Follow up with pcp or in clinic for any new or worsening symptoms. Go to ER for shortness of breath, chest pain, palpitations, weakness, dizziness. Coding Level of Care Code Est Pt Level 3 (83089) Diagnoses URI (upper respiratory infection) J06.9
[2023-06-15 11:55] VITALS: BP 112/64; PULSE 87; TEMP 36.8; O2SAT 98; BMI 30.5
== END 2023-06-15 13:07 | disposition home or self-care (01) ==
PROVIDERS: PCP Internal Medicine; Visit Provider Registered Nurse Emergency
DX: J06.9 Acute upper respiratory infection, unspecified (principal)
CPT/HCPCS: 99213

== ENCOUNTER 2023-07-02 09:58 | Outpatient (REF) | payer OTHER, SELFPAY ==
[2023-07-02 16:14] LABS: CT PCR NOT DETECTED (Not Detect.); NG PCR NOT DETECTED (Not Detect.)
[2023-07-03 08:41] LABS: BV Int Neg Control Negative (Negative); BV Int Pos Control Positive (Positive)
== END 2023-07-02 09:59 | disposition home or self-care (01) ==
LOC: HO.LAB 09:58
PROVIDERS: PCP Internal Medicine; Visit Provider Advanced Practice Midwife
DX: R10.2 Pelvic and perineal pain (principal); R35.0 Frequency of micturition; N89.8 Other specified noninflammatory disorders of vagina
CPT/HCPCS: 0353U; 81003; 87086; 87480; 87510; 87660; 99212

== ENCOUNTER 2023-07-02 09:58 | Outpatient (AMB) | payer OTHER, SELFPAY ==
[2023-07-02 09:59] VITALS: BP 100/64; BMI 30.5
--- NOTE | 2023-07-02 09:59 | A.OFFVIS_ITS ---
Intake Vital Signs 07/02/23 09:59 Height 5 ft 6 in Weight 189 lb BMI 30.5 BP 100/64 Intake Visit Reasons: ?BV Intake Note: vaginal odor, itching Crime Lab Analyst: Crime Lab Analyst Present (Belinda) Allergies amoxicillin [AMOXICILLIN] Adverse Reaction (Intermediate, Verified 07/02/23 09:59) Diarrhea milk Adverse Reaction (Intermediate, Verified 07/02/23 09:59) WHOLE MILK- UPSET STOMACH Wellbutrin Allergy (Mild, Uncoded 05/13/23 14:55) unknown ANIMAL FAT Adverse Reaction (Intermediate, Uncoded 05/13/23 14:55) Diarrhea CHOCOLATE Adverse Reaction (Intermediate, Uncoded 05/13/23 14:55) DIARRHEA PEANUT BUTTER Adverse Reaction (Intermediate, Uncoded 05/13/23 14:55) Diarrhea Is last menstrual period known: Yes Last menstrual period: 06/08/23 HPI HPI Comments History of Present Illness Details Patient is here today with concerns of lower pelvic cramping, low back pain, frequency of urination, vaginal odor-slightly fishy, mild discomfort with intimacy. She admits to not hydrating well, and has dark urine color. [facility] Medical History Initiation of Depo Provera Dyspareunia, female New daily persistent headache Mild recurrent major depression ADD (attention deficit disorder) Surgical History No pertinent past surgical history Family History Mother No problems noted. Father No problems noted. Social History Housing: Apartment Alcohol intake: current Alcohol intake frequency: holidays/special occasions only Patient Tobacco Use Status: Never used Tobacco e-Cigarette/Vaping Use: Never Used Second Hand Smoke Exposure: Yes Substance Use Type: Marijuana service: No Current occupational status: employed Current occupational exposures/hazards: No Sexual orientation: Straight/Heterosexual Cognitive needs: No Hearing needs: No Vision needs: Yes Female Reproductive History Menstrual Age of Menarche: 13 Date of last menstrual period: 06/08/23 Review of Systems Const All systems reviewed & are unremarkable except as noted in HPI and below Physical Exam Vital Signs: Last Vital Signs BP 100/64 07/02/23 09:59 BMI result Body Mass Index 30.5 Const General: cooperative, healthy appearing and no acute distress Orientation/consciousness: patient oriented x3 GI Inspection: Yes normal to inspection Palpation (GI): Soft to palpation and Other GI palpation findings present (Nontender) Rectal Exam - Female: visual inspection normal General: Yes bladder normal to palpation External Female Exam: normal appearance of the urethra Speculum Exam - Vagina: normal appearance of the vagina, normal palpation and normal vaginal discharge (Thin white) Speculum Exam - Cervix: normal appearance of the cervix and normal palpation Bimanual exam- vagina & uterus: normal bimanual exam, normal palpation, uterine size normal, bladder normal to palpation, normal palpation, uterine shape normal and non-tender Bimanual Exam- Adnexa, other: normal adnexae Neuro General: patient oriented x3 Results AMB Urinalysis, Automated UA Leukoctes 1 Robert/uL Last Edit by CAT Botello on 07/02/23 10:25 UA Nitrite Negative Last Edit by CAT Botello on 07/02/23 10:25 UA Urobilinogen 0 mg/dL Last Edit by CAT Botello on 07/02/23 10:2 5 UA Protein 0.5 mg/dL Last Edit by CAT Botello on 07/02/23 10:25 UA pH 6.0 Last Edit by CAT Botello on 07/02/23 10:25 UA Blood 3 Kojo/uL Last Edit by CAT Botello on 07/02/23 10:25 UA Specific [place] 1.020 Last Edit by CAT Botello on 07/02/23 10:25 UA Ketone Negative Last Edit by CAT Botello on 07/02/23 10:25 UA Bilirubin 0 mg/dL Last Edit by CAT Botello on 07/02/23 10:25 UA Glucose 0 mg/dL Last Edit by CAT Botello on 07/02/23 10:25 Assessment & Plan Assessment & Plan (1) Pain in pelvis: Code(s): R10.2 - Pelvic and perineal pain (2) Frequency of urination: Code(s): R35.0 - Frequency of micturition (3) Vaginal odor: Code(s): N89.8 - Other specified noninflammatory disorders of vagina Plan Discussed: Plan to obtain BV and GC and chlamydia cultures, clean-catch UA. Increase hydration, mostly water. Always clean and wipe from front to back. Empty your bladder often and when the urge. Urinate after intimacy. Take as directed and complete any medications that may be ordered. Report to the ED immediately if any fever >100.4, flu like symptoms, lightheadedness, dizziness, significant flank pain. Orders: Orders AMB Urinalysis Automated Today R30.0 - Dysuria Urine Culture Today R10.2 - Pelvic and perineal pain, R35.0 - Frequency of micturition Bacterial Vaginosis Panel Today N89.8 - Other specified noninflammatory disorders of vagina CT NG by PCR Today N89.8 - Other specified noninflammatory disorders of vagina Medications: New nitrofurantoin monohyd/m-cryst 100 mg (Macrobid) must administer with a meal/food 100 mg PO BID 5 days 10 caps 0RF UTI Coding Level of Care Code Est Pt Level 3 (06607) Diagnoses Pain in pelvis R10.2 Frequency of urination R35.0 Vaginal odor N89.8
== END 2023-07-02 11:29 | disposition home or self-care (01) ==
LOC: HO.HWSW 09:58
PROVIDERS: PCP Internal Medicine; Visit Provider Advanced Practice Midwife
DX: R10.2 Pelvic and perineal pain (principal); R35.0 Frequency of micturition; N89.8 Other specified noninflammatory disorders of vagina; R30.0 Dysuria
CPT/HCPCS: 99213

== ENCOUNTER 2023-07-02 10:14 | Outpatient (REF) | payer OTHER, SELFPAY | END 2023-07-02 10:15 | disposition home or self-care (01) | LOC: HO.LNP 10:14 | PROVIDERS: Visit Provider Advanced Practice Midwife | DX: Z13.89 Encounter for screening for other disorder (principal) ==

== ENCOUNTER 2024-06-23 08:19 | Outpatient (REF) | payer OTHER, SELFPAY ==
[2024-06-24 06:45] LABS: CT PCR NOT DETECTED (Not Detect.); NG PCR NOT DETECTED (Not Detect.)
[2024-06-24 10:23] LABS: Bacterial Vaginosis PCR NEGATIVE (Negative); Candida Group PCR NOT DETECTED (Not Detect); Candida glab krusei PCR NOT DETECTED (Not Detect); Trichomonas vaginalis PCR NOT DETECTED (Not Detect)
== END 2024-06-23 08:20 | disposition home or self-care (01) ==
LOC: HO.LAB 08:19
PROVIDERS: PCP Internal Medicine; Visit Provider Advanced Practice Midwife
DX: Z01.419 Encounter for gynecological examination (general) (routine) without abnormal findings (principal); R82.90 Unspecified abnormal findings in urine; N89.8 Other specified noninflammatory disorders of vagina
CPT/HCPCS: 81003; 81025; 81515; 87491; 87591; 99212; 99395; 99459

== ENCOUNTER 2024-06-23 08:47 | Outpatient (REF) | payer OTHER, SELFPAY | END 2024-06-23 08:48 | disposition home or self-care (01) | LOC: HO.LNP 08:47 | PROVIDERS: Visit Provider Advanced Practice Midwife | DX: Z32.02 Encounter for pregnancy test, result negative (principal) | CPT/HCPCS: 88175 ==

== ENCOUNTER 2024-06-29 12:56 | Outpatient (REF) | payer OTHER, SELFPAY | END 2024-06-29 12:57 | disposition home or self-care (01) | LOC: HO.LNP 12:56 | PROVIDERS: Visit Provider Advanced Practice Midwife | DX: R87.612 Low grade squamous intraepithelial lesion on cytologic smear of cervix (LGSIL) (principal) | CPT/HCPCS: 87626 ==

== ENCOUNTER 2024-07-14 09:07 | Outpatient (AMB) | payer OTHER, SELFPAY ==
[2024-07-14 09:14] VITALS: BP 120/80; PULSE 76; TEMP 36.2; O2SAT 99; BMI 32.0
--- NOTE | 2024-07-14 09:14 | A.OFFPC_ITS ---
Vital Signs 07/14/24 09:14 Height 5 ft 6 in Weight 198 lb 8 oz BMI 32.0 BP 120/80 Blood Pressure Location Lt brachial Position Sitting Pulse 76 Pulse Source Pulse Oximeter Temp 97.1 F Temp Source Temporal Artery Scan Pulse Oximetry (%) 99 Oxygen Delivery Method Room Air Intake Visit Reasons: PE Intake Note: Patient is here today for a physical. Cycle Consultant Required: No Accompanied by: Self / Same As Patient Allergies amoxicillin [AMOXICILLIN] Adverse Reaction (Intermediate, Verified 07/14/24 09:20) Diarrhea milk Adverse Reaction (Intermediate, Verified 07/14/24 09:20) WHOLE MILK- UPSET STOMACH Wellbutrin Allergy (Mild, Uncoded 07/14/24 09:20) unknown ANIMAL FAT Adverse Reaction (Intermediate, Uncoded 07/14/24 09:20) Diarrhea CHOCOLATE Adverse Reaction (Intermediate, Uncoded 07/14/24 09:20) DIARRHEA PEANUT BUTTER Adverse Reaction (Intermediate, Uncoded 07/14/24 09:20) Diarrhea Medication List - Last Reconciled 07/14/24 by Sobia Ralph MD escitalopram oxalate 10 mg PO DAILY methylphenidate HCl 10 mg PO DAILY Tobacco use date assessed: 07/14/24 Dental Screening Dental Screen Date: 07/14/24 Did you have a dental visit in the last 12 months?: Yes Did you have a dental problem in the last 6 months where you did not have access to dental care?: No Was dental information given to patient?: Patient has dentist HPI HPI Comments History of Present Illness Details The patient is a 23-year-old female presenting with for her physical exam. She reports a recent diagnosis of Human Papillomavirus (HPV) following a positive Pap smear test last month. Since then, she is awaiting follow-up examination to rule out cervical cancer. She mentions experiencing significant fatigue, which she notes could be related to her overnight work schedule. Additionally, she has developed numbness extending from her lower back to both legs, suspected to be sciatica, with associated leg pain that occasionally feels as though it needs to crack. The patient also describes an episode of dysphagia, reporting difficulty swallowing and needing to reswallow food, which she believes is due to the feeling of choking. This sensation occurs primarily when she eats, accompanied by upper abdominal pain related to food intake, although presently she associates her abdominal discomfort with menstruation. Previously, she experienced constipation but now reports looser stools. Mild to moderate major depression is follow by Psychiatry. - Influenza vaccination offered; patient has not received it this season. - Discussed upcoming appointment for HPV -related screening. - Barium swallow test planned to investi gate esophageal obstruction. - Blood work for cholesterol, sugar, kid nadira, and liver function. - Vitamin B12 and thyroid function tests scheduled. - Nerve conduction study discussed. - Offered referral for physical therapy and potential pain management. [facility] Medical History (Updated 07/14/24 @ 09:33 by Sobia Ralph MD) New daily persistent headache Mild recurrent major depression ADD (attention deficit disorder) Surgical History No pertinent past surgical history Family History Mother No problems noted. Father No problems noted. Social History (Updated 07/14/24 @ 09:24 by Sobia Ralph MD) Housing: Apartment Alcohol intake: current Alcohol intake frequency: holidays/special occasions only Alcohol type: wine and hard liquor Patient Tobacco Use Status: Never used Tobacco e-Cigarette/Vaping Use: Never Used Second Hand Smoke Exposure: Yes Substance Use Type: Marijuana service: No Current occupational status: employed Current occupational exposures/hazards: No Sexual orientation: Straight/Heterosexual Cognitive needs: No Hearing needs: No Vision needs: Yes Female Reproductive History Menstrual Age of Menarche: 13 Questionnaire PHQ-9 Over the last 2 weeks, how often have you been bothered by any of the following problems? 1. Little interest or pleasure in doing things: nearly every day 2. Feeling down, depressed, or hopeless: several days 3. Trouble falling or staying asleep, or sleeping too much: nearly every day 4. Feeling tired or having little energy: nearly every day 5. Poor appetite or overeating: nearly every day 6. Feeling bad about yourself - or that you are a failure or have let yourself or your family down: not at all 7. Trouble concentrating on things, such as reading the newspaper or watching television: not at all 8. Moving or speaking so slowly that other people could have noticed. Or the opposite - being so fidgety or restless that you have been moving around a lot more than usual: not at all 9. Thoughts that you would be better off or of hurting yourself in some way: not at all Total score: 13 Depression Screening Interpretation: Positive Depression Screening Follow-up: Existing condition and Follow-up Visit Requested Depression Screening Done: Yes 68409 - PHQ-9 Billing: Yes Source: Developed by Drs. Dae Griffin, Fabiola Persaud, Dmitry Walker and colleagues, with an educational jabier from [employer]. Thrive Questionnaire Date Thrive assessed: 07/14/24 I am a: Patient What is your living situation today?: I do not have a steady places to live I am staying at a hotel Within the past 12 months, did the food you bought not last and you didn't have the money to get more?: Never true Within the past 12 months, did you worry whether your food would run out before you got money to buy more?: Never true Do you have trouble paying for medicines?: No Do you have trouble getting transportation to medical appointments?: Yes Do you have trouble paying your heating and electricity bill?: No Do you have trouble taking care of your child, family member or friend?: No Do you have trouble with day-to-day activities such as bathing, preparing meals, shopping, managing finances, etc.?: No Are you currently unemployed and looking for a job?: No Are you interested in more education?: No Please select the resources that you would like help with: Housing/Fdc and Transportation Currently or been in a relationship where the following occur: No concerns reported THRIVE Score: 2 AUDIT C Alcohol Use Questionnaire (AUDIT-C) 1. How often do you have a drink containing alcohol?: Monthly or less 2. How many drinks containing alcohol do you have on a typical day when you are drinking?: 1 or 2 3. How often do you have six or more drinks on one occasion?: Never Total Score: 1 Score Reviewed/Action Taken: No KRYSTEN-7 AMB Questionnaire KRYSTEN-7 Date KRYSTEN - 7 assessed: 07/14/24 Feeling nervous, anxious, or on edge: 1 = Several days Not being able to stop or control worryin = Several days Worrying too much about different things: 1 = Several days Trouble relaxin = Several days Being so restless that it is hard to sit still: 1 = Several days Becoming easily annoyed or irritable: 1 = Several days Feeling afraid as if something awful might happen: 0 = Not at all Total KRYSTEN-7 score (0-4 normal; 5-9 mild; 10-14 moderate; 15-21 severe): 6 Source: Developed by Drs. Dae Griffin, Fabiola Persaud, Dmitry Walker and colleagues, with an educational jabier from [employer]. KRYSTEN-7 Assessment Billing KRYSTEN-7 Assessment Tool: KRYSTEN-7 Assessment 41608 Review of Systems Const All systems reviewed & are unremarkable except as noted in HPI and below Card Denies chest pain at rest, Denies chest pain with activity, Denies edema, Denies irregular heart rhythm, Denies claudication, Denies dyspnea, Denies dyspnea on exertion, Denies orthopnea, Denies paroxysmal nocturnal dyspnea and Denies slow heart rate Resp Denies cough, Denies dyspnea and Denies dyspnea on exertion GI Denies abdominal pain, Denies change in bowel habits, Denies excessive flatus, Denies nausea and Denies vomiting Denies urinary incontinence, Denies urinary hesitancy and Denies urinary urgency Musc Denies atrophy, Denies deformity and Denies limited range of motion Skin/Breast Denies bleeding lesions, Denies changing lesions and Denies rash Physical exam (Primary Care) Vital Signs: Last Vital Signs Temp 97.1 F 07/14/24 09:14 Pulse 76 07/14/24 09:14 BP 120/80 07/14/24 09:14 Pulse Ox 99 07/14/24 09:14 Oxygen Delivery Method Room Air 07/14/24 09:14 BMI result Body Mass Index 32.0 BMI Assessment/Plan discussion: High BMI High, discussed plan: lifestyle, weight reduction, dietary and physical activity Tobacco/Smoking Status: Tobacco use Status Tobacco use date assessed 07/14/24 07/14/24 09:19 Patient Tobacco Use Status Never used Tobacco 07/14/24 09:24 Tobacco use type 07/12/24 09:21 e-Cigarette/Vaping Use Never Used 07/14/24 09:24 PHQ-9: PHQ-9 Score PHQ-9: Total score 13 07/14/24 09:35 Depression Screening Interpretation: Positive Depression Screening Follow-up: Existing condition and Follow-up Visit Requested Thrive Assessment: Date of Thrive Assessment Date Thrive assessed 07/14/24 07/14/24 09:19 Currently or been in a relationship where the following occur: No concerns reported HENCO Head: Yes normal to inspection, Yes normocephalic and Yes atraumatic Ears: external ears normal Eyes General: appearance normal, both eyes and all related structures Eyelids: Yes eyelids normal Conjunctivae: conjunctivae normal Neck Neck: Yes normal visual inspection and Yes supple Resp Effort & Inspection: normal respiratory effort Auscultation: clear to auscultation bilaterally Cardio Jugular venous distension: no JVD Rate: regular rate Rhythm: regular rhythm Heart sounds: S1 normal heart sound present and S2 normal heart sound present GI Inspection: Yes normal to inspection Palpation (GI): Soft to palpation and nontender Auscultation: normal bowel sounds Skin General skin exam: no rashes or lesions noted Neuro General: no focal motor deficits Extrem General: Yes full ROM Psych Appearance: grossly normal Office Procedures Flu Questionnaire Does the patient have a severe egg allergy?: No Flu Questionnaire Does the patient have a severe egg allergy?: No Does the patient have severe life threatening allergies?: No Does the patient have a fever or illness today?: No Has the patient ever had Guillain-Lejunior Syndrome?: No Has the patient ever had any past reaction to a flu shot?: No Immunizations Fluarix Triv [id number] (PF) 45 mcg (15 mcg x 3)/0.5 mL IM syringe Performing Provider: Sobia Ralph MD Performing Location: [facility] [place] [facility] Documented (not given) by: ARAM Arriaza on 07/14/24 09:27 Reason Not Given: Patient Refused Fluarix Triv 0840-1472 (PF) 45 mcg (15 mcg x 3)/0.5 mL IM syringe Performing Provider: Sobia Ralph MD Performing Location: [facility] – [place] Adult [facility] Administered by: CAT Bettencourt on 07/14/24 09:34 Dose Route Admin Location Dispensed Lot Number Expiration Date [facility] Hospice Care Consultant 0.5 mL IM Right Deltoid 0.5 mL [id number] 11/21/24 45072-593-[facility] V[facility] Given Date VIS Provided VIS Publication Date 07/14/24 Single Vaccine 20 Eligibility Eligibility Date Funding Source Not [facility] Eligible 07/14/24 Private Coding Level of Care Code Est Pt Level 4 (37152) Est Pt Prev Care 18-39y(35230) Diagnoses Physical exam Z00.00 Moderate major depression F32.1 Bilateral sciatica M54.31; M54.32 Fatigue R53.83 Difficulty swallowing solids R13.10 Paresthesia of bilateral legs R20.2 Paresthesia and pain of both upper extremities R20.2; M79.601; M79.602 Additional Codes KRYSTEN-7 Assessment Billing - KRYSTEN-7 Assessment Tool: KRYSTEN-7 Assessment 25398 ([id number]) PHQ-9 - 50960 - PHQ-9 Billing: Yes ([id number]) Time Spent (min) 40 Assessment & Plan Assessment & Plan (1) Physical exam: Code(s): Z00.00 - Encounter for general adult medical examination without abnormal findings Category: Medical (2) Moderate major depression: Code(s): F32.1 - Major depressive disorder, single episode, moderate Category: Medical (3) Bilateral sciatica: Code(s): M54.31 - Sciatica, right side; M54.32 - Sciatica, left side Category: Medical (4) Fatigue: Code(s): R53.83 - Other fatigue Category: Medical (5) Difficulty swallowing solids: Code(s): R13.10 - Dysphagia, unspecified Category: Medical (6) Paresthesia of bilateral legs: Code(s): R20.2 - Paresthesia of skin Category: Medical (7) Paresthesia and pain of both upper extremities: Code(s): R20.2 - Paresthesia of skin; M79.601 - Pain in right arm; M79.602 - Pain in left arm Category: Medical Plan - Schedule barium swallow study to investigate dysphagia. - Blood tests to evaluate thyroid function, vitamin levels, and general metabolic panel for fatigue assessment. - Initiate a nerve conduction study to examine potential neuropathy. - Recommend starting physical therapy for back pain and plan for possible referral to pain management if symptoms persist. - Administer influenza vaccine today if patient agrees. - Follow up on scheduled HPV evaluation appointment. - Encourage patient to maintain healthy sleep patterns despite overnight work schedule. - Educate on monitoring of symptoms, particularly regarding potential sciatica and dysphagia. Patient was informed and verbally consented to the use of an ambient scribe for clinic note documentation during this visit. I discussed the possible causes of the patient?s fatigue, including thyroid dysfunction and vitamin deficiencies. I explained the importance of undergoing a barium swallow test to evaluate swallowing difficulties. We reviewed lifestyle modifications such as managing a rigorous work schedule and considering physical therapy for back pain management. I educated the patient on the benefits and availability of receiving the influenza vaccine today and advised on completing the scheduled follow-up for HPV-related clinical evaluation. I also emphasized the need to investigate sciatica and the potential necessity of pain management or neurology referral depending on nerve conduction study outcomes. Instructions for monitoring symptoms and returning for earlier evaluation were provided if current symptoms worsen. Orders: Orders XR lumbar spine 2-3V Today M54.31 - Sciatica, right side, M54.32 - Sciatica, left side FL barium swallow Today R13.10 - Dysphagia, unspecified Influenza [id number] Immunization Today Z23 - Encounter for immunization Vitamin B12 and Folate Today E53.8 - Deficiency of other specified B group vitamins Lipid Panel Today Z00.00 - Encounter for general adult medical examination without abnormal findings Influenza [id number] Immunization Today Z23 - Encounter for immunization PT Evaluation and Treatment Today M54.31 - Sciatica, right side, M54.32 - Sciatica, left side NE nerve conduction velocity Today M79.601 - Pain in right arm, M79.602 - Pain in left arm, R20.2 - Paresthesia of skin Vitamin D 25-OH Total Today E55.9 - Vitamin D deficiency, unspecified Comprehensive Harbinger. Panel Fast Today Z00.00 - Encounter for general adult medical examination without abnormal findings Thyroid Stimulating Hormone Today R53.83 - Other fatigue Complete Blood Count Auto Diff Today R53.83 - Other fatigue Patient Instructions: - Proceed with scheduled HPV follow-up appointment. - Attend all scheduled diagnostic tests, including barium swallow, blood work, and nerve conduction study. - Start physical therapy as referred. - Receive influenza vaccination today if agreeable. - Maintain a balanced schedule with adequate rest despite overnight shifts. - Return for assessment if symptoms exacerbate or new symptoms arise.
== END 2024-07-14 09:36 | disposition home or self-care (01) ==
PROVIDERS: PCP Internal Medicine; Visit Provider Internal Medicine
DX: Z00.00 Encounter for general adult medical examination without abnormal findings (principal); F32.1 Major depressive disorder, single episode, moderate; M54.31 Sciatica, right side; M54.32 Sciatica, left side; R53.83 Other fatigue; R13.10 Dysphagia, unspecified; R20.2 Paresthesia of skin; M79.601 Pain in right arm; M79.602 Pain in left arm; Z23 Encounter for immunization

== ENCOUNTER → 2024-07-14 09:07 | Outpatient (BNVA) | payer OTHER, SELFPAY | PROVIDERS: PCP Internal Medicine; Visit Provider Internal Medicine | DX: Z00.01 Encounter for general adult medical examination with abnormal findings (principal); Z23 Encounter for immunization; F32.1 Major depressive disorder, single episode, moderate; M54.31 Sciatica, right side; M54.32 Sciatica, left side; R53.83 Other fatigue; R13.10 Dysphagia, unspecified; R20.2 Paresthesia of skin; M79.601 Pain in right arm; M79.602 Pain in left arm | CPT/HCPCS: 90471; 90656; 96127; 99212; 99395 ==

== ENCOUNTER 2024-08-12 11:50 | Outpatient (AMB) | payer OTHER, SELFPAY ==
--- NOTE | 2024-08-12 11:57 | MHC.OFFVIS ---
Vital Signs 08/12/24 12:03 Height 5 ft 6 in Weight 198 lb BMI 32.0 Intake Visit Reasons: Colposcopy Calender Feeder Required: No Information Interpreted: non-clinical & clinical Durability Engineer: Durability Engineer Present (Josey SHELTON) Accompanied by: Friend Allergies amoxicillin [AMOXICILLIN] Adverse Reaction (Intermediate, Verified 08/12/24 12:05) Diarrhea milk Adverse Reaction (Intermediate, Verified 08/12/24 12:05) WHOLE MILK- UPSET STOMACH Wellbutrin Allergy (Mild, Uncoded 08/12/24 12:05) unknown ANIMAL FAT Adverse Reaction (Intermediate, Uncoded 08/12/24 12:05) Diarrhea CHOCOLATE Adverse Reaction (Intermediate, Uncoded 08/12/24 12:05) DIARRHEA PEANUT BUTTER Adverse Reaction (Intermediate, Uncoded 08/12/24 12:05) Diarrhea Is last menstrual period known: Yes Last menstrual period: 08/01/24 HPI Comments Details: Presenting for abnormal Pap smear showing low-grade CASEY HPV positive [facility] Medical History (Updated 08/12/24 @ 12:14 by Charles Benjamin MD) ASCUS of cervix with negative high risk HPV New daily persistent headache Mild recurrent major depression ADD (attention deficit disorder) Surgical History No pertinent past surgical history Family History Mother No problems noted. Father No problems noted. Social History Housing: Apartment Alcohol intake: current Alcohol intake frequency: holidays/special occasions only Alcohol type: wine and hard liquor Patient Tobacco Use Status: Never used Tobacco e-Cigarette/Vaping Use: Never Used Second Hand Smoke Exposure: Yes Substance Use Type: Marijuana service: No Current occupational status: employed Current occupational exposures/hazards: No Sexual orientation: Straight/Heterosexual Cognitive needs: No Hearing needs: No Vision needs: Yes Female Reproductive History Menstrual Age of Menarche: 13 Date of last menstrual period: 08/01/24 Review of Systems Const All systems reviewed & are unremarkable except as noted in HPI and below Reports as per HPI and Reports no additional complaints GI Reports no additional complaints Reports no additional complaints Physical Exam Vital Signs: BMI result Body Mass Index 32.0 Office Procedures Colposcopy Colposcopy: Pre-Procedure Counseling: Before beginning the procedure, I conducted comprehensive counseling with the patient. We thoroughly discussed the procedure itself, including its details, alternatives, and all associated risks. This included but not limited to the following complications such as bleeding, infection, and injury to the vagina, bladder, and vessels, as well as the potential need for transfusion with all its associated risks. Subsequently, the patient sign the consent. Pap smear result: LSIL/HPV positive. Urine test in office = Negative Procedure: During the procedure, the following steps were performed: A speculum was inserted, and acetic acid was applied. Colposcopy was conducted, allowing visualization of the transformation zone. Acetowhite lesions were identified at the 4+ 6+ 7+ 9+ 11+ 12+ 1 o'clock position. Cervical biopsies were obtained from the 4+ 6+ 7+ 9+ 11+ 12+ 1 o'clock position, followed by an endocervical curettage (ECC). Vaginoscopy of the upper vagina revealed no evidence of aceto-white lesions. Hemostasis was achieved using Monsel solution, and the patient tolerated the procedure well. Post-Procedure Instructions: The patient was advised to promptly contact the office or the after hours answering service or go to the emergency room if experiencing a temperature exceeding 100.4?F, abdominal pain, nausea/vomiting, or bleeding. Additionally, the patient was instructed to abstain from vaginal intercourse and bathtub use. The patient confirmed understanding of these instructions. Discharge Instructions: The patient was instructed to schedule a follow-up appointment in 2 weeks for further evaluation and management. Please note that this note was generated using a voice recognition program, and errors may have occurred during roller structural mill. [id number]-[id number] of cervix including upper vagina with biopsy and ECC Procedure code (CPT) selection complete Results AMB Test Urine AMB Test Urine Negative Last Edit by Josey Fernandez CMA on 08/12/24 12:04 Results Reviewed Results Reviewed: Laboratory Last Values Tst Clinic Negative 08/12/24 12:03 Assessment & Plan Assessment & Plan (1) LGSIL on Pap smear of cervix: Comment: HPV positive Code(s): R87.612 - Low grade squamous intraepithelial lesion on cytologic smear of cervix (LGSIL) Category: Medical Plan: Discussed with the patient the result of her abnormal pap, its significance, risk of progression, persistence, and regression. the false positive/negative rate of a Pap smear as a screening test in detecting cervical cancer and the indication for a diagnostic test -colposcopy, biopsy, endocervical curettage. The patient verbalized understanding and agreed with the plan, all questions answered. Colpo biopsy ECC done, see procedure note Orders: Orders AMB HCG Urine Test Today Z32.02 - Encounter for test, result negative AMB Colposcopy Today R87.612 - Low grade squamous intraepithelial lesion on cytologic smear of cervix (LGSIL) Coding Level of Care Code Procedure Only Diagnoses LGSIL on Pap smear of cervix R87.612 CPT Codes Colposcopy - CPT: 76699-Wtumaxsxt of cervix including upper vagina with biopsy and ECC ([id number])
[2024-08-12 12:03] VITALS: BMI 32.0
== END 2024-08-12 12:29 | disposition home or self-care (01) ==
LOC: HO.HWS 11:50
PROVIDERS: PCP Internal Medicine; Visit Provider Obstetrics & Gynecology
DX: R87.612 Low grade squamous intraepithelial lesion on cytologic smear of cervix (LGSIL) (principal); Z32.02 Encounter for pregnancy test, result negative
CPT/HCPCS: 57454

== ENCOUNTER 2024-08-12 11:50 | Outpatient (REF) | payer OTHER, SELFPAY | END 2024-08-12 11:51 | disposition home or self-care (01) | LOC: HO.LNP 11:50 | PROVIDERS: PCP Internal Medicine; Visit Provider Obstetrics & Gynecology | DX: R87.612 Low grade squamous intraepithelial lesion on cytologic smear of cervix (LGSIL) (principal) | CPT/HCPCS: 57454; 81025; 88305 ==

== ENCOUNTER 2024-09-06 13:49 | Outpatient (AMB) | payer OTHER, SELFPAY ==
--- NOTE | 2024-09-06 13:50 | A.OFFVIS_ITS ---
Intake Visit Reasons: Colposcopy results Allergies amoxicillin [AMOXICILLIN] Adverse Reaction (Intermediate, Verified 08/12/24 12:05) Diarrhea milk Adverse Reaction (Intermediate, Verified 08/12/24 12:05) WHOLE MILK- UPSET STOMACH Wellbutrin Allergy (Mild, Uncoded 08/12/24 12:05) unknown ANIMAL FAT Adverse Reaction (Intermediate, Uncoded 08/12/24 12:05) Diarrhea CHOCOLATE Adverse Reaction (Intermediate, Uncoded 08/12/24 12:05) DIARRHEA PEANUT BUTTER Adverse Reaction (Intermediate, Uncoded 08/12/24 12:05) Diarrhea HPI Comments Details: The patient is scheduled a telehealth visit post colpo for follow-up. The patient is doing well with no complaints. The pathology showed the following: A. Endocervix, curettage: Scant benign endocervical glandular epithelium; no dysplasia seen. B. Cervix, 1:00, biopsy: Squamous and endocervical glandular mucosa with a detached fragment of low-grade squamous intraepithelial lesion (mild dysplasia, RAUL 1). C. Cervix, 4:00, biopsy: Endocervical glandular and squamous epithelium; negative for dysplasia. D. Cervix, 6:00, biopsy: Squamous and endocervical glandular mucosa with marked inflammation and reactive changes; negative for dysplasia. E. Cervix, 7:00, biopsy: Low-grade squamous intraepithelial lesion (mild dysplasia, RAUL 1), involving endocervical glandular mucosa. F. Cervix, 9:00, biopsy: Low-grade squamous intraepithelial lesion (mild dysplasia, RAUL 1, tangential fragments); and endocervical glandular epithelium. G. Cervix, 11:00, biopsy: Endocervical glandular mucosa with scant squamous epithelium; negative for dysplasia. H. Cervix, 12:00, biopsy: Squamous and endocervical glandular mucosa with inflammation and reactive changes; negative for dysplasia. Comment: The low-grade dysplasia present in the patient's previous Pap test ([id number]) concurs with the current biopsy [facility] Medical History (Updated 09/06/24 @ 14:00 by Charles Benjamin MD) ASCUS of cervix with negative high risk HPV New daily persistent headache Mild recurrent major depression ADD (attention deficit disorder) Surgical History No pertinent past surgical history Family History Mother No problems noted. Father No problems noted. Social History Housing: Apartment Alcohol intake: current Alcohol intake frequency: holidays/special occasions only Alcohol type: wine and hard liquor Patient Tobacco Use Status: Never used Tobacco e-Cigarette/Vaping Use: Never Used Second Hand Smoke Exposure: Yes Substance Use Type: Marijuana service: No Current occupational status: employed Current occupational exposures/hazards: No Sexual orientation: Straight/Heterosexual Cognitive needs: No Hearing needs: No Vision needs: Yes Female Reproductive History Menstrual Age of Menarche: 13 Review of Systems Const All systems reviewed & are unremarkable except as noted in HPI and below Reports as per HPI and Reports no additional complaints GI Reports no additional complaints Reports no additional complaints Telehealth Telehealth Telehealth Platform: [facility] Location of provider rendering services: practice address Location of patient: address on file Patient Identification confirmed using: Name, : Yes Telehealth method: video Patient verbally consented to treatment: Yes Patient verbally consented to billing insurance company: Yes Patient informed of any privacy concerns related to visit: Yes Minutes spent on Phone/Video with Pt.: 4 Assessment & Plan Assessment & Plan (1) Dysplasia of cervix, low grade (RAUL 1): Code(s): N87.0 - Mild cervical dysplasia Category: Medical Plan: Discussed with the patient the pathology results of the colposcopy biopsies & endocervical curettage ( mild dysplasia-RAUL 1). Discussed with the patient the sensitivity specificity, positive and negative predictive value in detecting cervical cancer in addition discussed the regression, persistence and progression rates. Recommended co-testing in 12 months, if cytology and or HPV are abnormal will proceed was colposcopy biopsy and endocervical curettage, if lesions gets worse or stays persistent for 2 years will proceed with loop electric excision procedure. Instructions given to the patient to schedule a co test appointment in 1 year. All questions answered the patient verbalized understanding. I spent a total of 20 minutes reviewing the chart, talking to the patient via video and documenting in the medical record. Coding Level of Care Code Tele Est Pt Level 3 (54402) Diagnoses Dysplasia of cervix, low grade (RAUL 1) N87.0
== END 2024-09-06 14:03 | disposition home or self-care (01) ==
LOC: HO.HWS 13:49
PROVIDERS: PCP Internal Medicine; Visit Provider Obstetrics & Gynecology
DX: N87.0 Mild cervical dysplasia (principal)
CPT/HCPCS: 99213

== ENCOUNTER 2024-09-07 10:32 | Outpatient (REF) | payer OTHER, SELFPAY ==
--- NOTE | 2024-09-07 10:36 | EMG_ITS ---
Chief complaint: When he does overhead activities such as brushing her hair, she feels weakness in right arm. Reports intermittent numbness in hands and feet. Has complained of dysphagia, waiting for swallowing study. Exam does not show any atrophy, fasciculations or abnormal reflexes. Reason for referral: Evaluate for neuropathy Referred by: Dr. Sobia Ralph Procedure done: Bilateral upper and lower extremities NCS/EMG Precautions and/or limitations: None The limb temperature was monitored continuously and remained between 32-36 degrees C during the performance of the NCS. Nerve Conduction Studies Anti Sensory Summary Table ?Stim Site NR Onset (ms) Norm Onset (ms) Peak (ms) Norm Peak (ms) O-P Amp (?V) Norm O-P Amp Site1 Site2 Delta-0 (ms) Dist (cm) Pablo (m/s) Norm Pablo (m/s) Left Median Anti Sensory (2nd Digit) Wrist ? 2.7 3.4 <3.6 47.5 >10 Wrist 2nd Digit 2.7 14.0 52 Right Median Anti Sensory (2nd Digit) Wrist ? 2.5 3.2 <3.6 52.0 >10 Wrist 2nd Digit 2.5 14.0 56 Left Sural Anti Sensory (Lat Mall) Calf ? 2.9 3.7 <4.0 21.2 >5.0 Calf Lat Mall 2.9 14.0 48 Right Sural Anti Sensory (Lat Mall) Calf ? 3.0 3.7 <4.0 25.7 >5.0 Calf Lat Mall 3.0 14.0 47 Left Ulnar Anti Sensory (5th Digit) Wrist ? 2.1 2.8 <3.7 51.6 >15.0 Wrist 5th Digit 2.1 14.0 67 Right Ulnar Anti Sensory (5th Digit) Wrist ? 2.2 3.2 <3.7 33.3 >15.0 Wrist 5th Digit 2.2 14.0 64 Motor Summary Table ?Stim Site NR Onset (ms) Norm Onset (ms) O-P Amp (mV) Norm O-P Amp iAmp (mV) Amp (1st) (%) Site1 Site2 Delta-0 (ms) Dist (cm) Pablo (m/s) Norm Pablo (m/s) Left Median Motor (Abd Poll Brev) Wrist ? 3.7 <3.9 12.7 >4.5 15.0 100.0 Elbow Wrist 3.5 20.0 57 >45 Elbow ? 7.2 12.0 14.0 94.5 Right Median Motor (Abd Poll Brev) Wrist ? 3.7 <3.9 15.0 >4.5 17.4 100.0 Elbow Wrist 3.6 20.0 56 >45 Elbow ? 7.3 14.9 17.4 99.3 Right Peroneal Motor (Ext Dig Brev) Ankle ? 3.8 <4.0 6.6 >2.5 9.5 100.0 Ankle Ext Dig Brev 3.8 0.0 B Fib ? 10.2 6.6 9.1 100.0 B Fib Ankle 6.4 32.5 51 >40 Poplt ? 11.2 6.6 8.9 100.0 Poplt B Fib 1.0 6.0 60 >40 Left Tibial Motor (Abd Norman Brev) Ankle ? 4.3 <5 6.3 >2.5 11.7 100.0 Ankle Abd Norman Brev 4.3 0.0 Knee ? 11.7 4.7 9.3 74.6 Knee Ankle 7.4 37.0 50 >40 Right Tibial Motor (Abd Norman Brev) Ankle ? 4.1 <5 6.8 >2.5 12.8 100.0 Ankle Abd Norman Brev 4.1 0.0 Knee ? 11.3 4.9 10.3 72.1 Knee Ankle 7.2 37.0 51 >40 Left Ulnar Motor (Abd Dig Minimi) Wrist ? 2.5 <3.0 9.6 >5 11.8 100.0 B Elbow Wrist 3.2 20.0 63 >45 B Elbow ? 5.7 9.1 11.2 94.8 A Elbow B Elbow 1.6 10.0 63 >45 A Elbow ? 7.3 9.2 11.1 95.8 Right Ulnar Motor (Abd Dig Minimi) Wrist ? 2.8 <3.0 10.6 >5 12.8 100.0 B Elbow Wrist 3.1 19.0 61 >45 B Elbow ? 5.9 10.3 12.2 97.2 A Elbow B Elbow 1.2 10.0 83 >45 A Elbow ? 7.1 9.7 11.5 91.5 EMG ?Side Muscle Nerve Root Ins Act Fibs Psw Amp Dur Poly Recrt Int Pat Comment Right 1stDorInt Ulnar C8-T1 Nml Nml Nml Nml Nml 0 Nml Complete Right FlexCarRad Median C6-7 Incr 1+ 1+ Nml Nml 0 Nml Complete Right Biceps Musculocut C5-6 Incr 1+ 1+ Nml Nml 0 Nml Complete Right Triceps Radial C6-7-8 Nml Nml Nml Nml Nml 0 Nml Complete Right Deltoid Axillary C5-6 Nml Nml Nml Nml Nml 0 Nml Complete Right AbdHallucis MedPlantar S1-2 Nml Nml Nml Nml Nml 0 Nml Complete Right AntTibialis Dp Br Peron L4-5 Nml Nml Nml Nml Nml 0 Nml Complete Right PostTibialis Tibial L5, S1 Nml Nml Nml Nml Nml 0 Nml Complete Right MedGastroc Tibial S1-2 Nml Nml Nml Nml Nml 0 Nml Complete Right VastusMed Femoral L2-4 Nml Nml Nml Nml Nml 0 Nml Complete Left AbdHallucis MedPlantar S1-2 Nml Nml Nml Nml Nml 0 Nml Complete Left AntTibialis Dp Br Peron L4-5 Nml Nml Nml Nml Nml 0 Nml Complete Left PostTibialis Tibial L5, S1 Incr 1+ 1+ Nml Nml 0 Nml Complete Left MedGastroc Tibial S1-2 Nml Nml Nml Nml Nml 0 Nml Complete Left VastusMed Femoral L2-4 Nml Nml Nml Nml Nml 0 Nml Complete Paraspinal EMG ?Side Muscle Nerve Root Ins Act Fibs Psw Comment Right Cervical Upper Rami Nml Nml Nml Right Cervical Mid Rami Incr 1+ 1+ Right Cervical Lower Rami Incr 1+ 1+ Left Cervical Upper Rami Nml Nml Nml Left Cervical Mid Rami Nml Nml Nml Left Cervical Lower Rami Nml Nml Nml Right Lumbar Upper Rami Nml Nml Nml Right Lumbar Mid Rami Nml Nml Nml Right Lumbar Lower Rami Nml Nml Nml Left Lumbar Upper Rami Nml Nml Nml Left Lumbar Mid Rami Nml Nml Nml Left Lumbar Lower Rami Nml Nml Nml Right Thoracic Lower Rami Nml Nml Nml FINDINGS: All motor and sensory nerves tested showed normal latencies, amplitudes and conduction velocities. Concentric needle EMG was performed in selected muscles of the right upper extremity, bilateral lower extremities, cervical, thoracic and lumbar paraspinals. Study revealed signs of electric abnormalities as shown in the table above. Right FCR and FDI showed increased insertional activity, PSWs and fibrillations. Left posterior tibialis showed increased insertional activity, PSWs and fibrillations. Right mid and lower cervical paraspinals showed increased insertional activity, PSWs and fibrillations. No denervation seen on thoracic and lumbar paraspinals. No myopathic looking units. No fasciculations. IMPRESSION: 1. Nerve conduction studies normal. 2. Needle EMG showed PSWs and fibrillations on specific muscles, as listed in the table. 3. There is no electrodiagnostic evidence for median neuropathy, ulnar neuropathy, brachial plexopathy, peroneal neuropathy, tibial neuropathy. lumbosacral plexopathy, or peripheral neuropathy. CLINICAL COMMENT: 23-year-old complaining of right upper extremity weakness, dysphagia and intermittent numbness in hands and feet. MMT 5/5. Reflexes are intact upper and lower bilateral. Negative Eng's sign. Negative Babinski. No fasciculations. No atrophy. EMG did show evidence of lower motor neuron involvement on right upper extremity/cervical and left lower extremity. If motor neuron disorder is suspected, refer to neurology/neuromuscular specialist. Rule out motor neuron disorder mimics such as cervical or lumbar stenosis or radiculopathy. Recommend obtaining cervical and lumbar imaging. Thank you for your kind referral. Ya Lacy MD, SHAMA Board Certified, [place] Board [employer] and Rehabilitation (ABPMR) Board Certified, [place] Board of Electrodiagnostic Medicine (ABEM) CODIN 11431 x 2 [phone] [id number] MTDD
== END 2024-09-07 10:33 | disposition home or self-care (01) ==
LOC: HO.NEURO 10:32
PROVIDERS: PCP Internal Medicine; Visit Provider Internal Medicine
DX: R20.2 Paresthesia of skin (principal); R53.1 Weakness; R13.10 Dysphagia, unspecified
CPT/HCPCS: 95860; 95869; 95885; 95886; 95913

== ENCOUNTER → 2024-09-07 10:36 | Outpatient (BNV) | payer OTHER, SELFPAY | PROVIDERS: PCP Internal Medicine; Visit Provider Physical Medicine & Rehabilitation | DX: R20.0 Anesthesia of skin (principal); R20.2 Paresthesia of skin | CPT/HCPCS: 95886; 95887; 95913 ==

== ENCOUNTER 2024-09-28 14:04 | Outpatient (AMB) | payer OTHER, SELFPAY ==
--- NOTE | 2024-09-28 14:07 | MHC.OFFWIV ---
Intake Vital Signs 09/28/24 14:12 Weight 200 lb BP 110/76 Blood Pressure Location Rt brachial Position Sitting Pulse 93 Pulse Source Pulse Oximeter Temp 98.6 F Temp Source Oral Pulse Oximetry (%) 98 Oxygen Delivery Method Room Air Intake Visit Reasons: EP- Sore throat, b/l ear pain Intake Note: Patient here for sore throat and bilat ear pain that started yesterday. Patient Tobacco Use Status: Never used Tobacco Allergies amoxicillin [AMOXICILLIN] Adverse Reaction (Intermediate, Verified 09/28/24 14:11) Diarrhea milk Adverse Reaction (Intermediate, Verified 09/28/24 14:11) WHOLE MILK- UPSET STOMACH Wellbutrin Allergy (Mild, Uncoded 09/28/24 14:11) unknown ANIMAL FAT Adverse Reaction (Intermediate, Uncoded 09/28/24 14:11) Diarrhea CHOCOLATE Adverse Reaction (Intermediate, Uncoded 09/28/24 14:11) DIARRHEA PEANUT BUTTER Adverse Reaction (Intermediate, Uncoded 09/28/24 14:11) Diarrhea Do you need a note to return to daycare/school/sports/work: Yes HPI HPI Comments History of Present Illness Details She presents to office with friends for ear pain and ST Onset symptoms yesterday + ear pain and ST She said + congestion, cough with mucus Tried OTC medicine which helped; Nyquil Some SOB but has hx of smoking marijuana per patient No sick contacts known ST is 6/10; also has the clogged ear feeling and painful only when sneezing [facility] Medical History (Updated 09/28/24 @ 14:27 by Wanda Bates PA-C) ASCUS of cervix with negative high risk HPV New daily persistent headache Mild recurrent major depression ADD (attention deficit disorder) Surgical History No pertinent past surgical history Family History Mother No problems noted. Father No problems noted. Social History Housing: Apartment Alcohol intake: current Alcohol intake frequency: holidays/special occasions only Alcohol type: wine and hard liquor Patient Tobacco Use Status: Never used Tobacco e-Cigarette/Vaping Use: Never Used Second Hand Smoke Exposure: Yes Substance Use Type: Marijuana service: No Current occupational status: employed Current occupational exposures/hazards: No Sexual orientation: Straight/Heterosexual Cognitive needs: No Hearing needs: No Vision needs: Yes Female Reproductive History Menstrual Age of Menarche: 13 Review of Systems Const Denies chills and Reports fatigue Eyes Denies change in vision ENT Reports otalgia, Reports nasal congestion, Reports sore throat and Denies throat swelling Card Denies chest pain, Denies syncope and Denies dyspnea Resp Reports cough and Denies dyspnea Musc Reports myalgias Neuro Denies syncope Endo Reports fatigue Aller/Immun Denies throat swelling Physical Exam Vital Signs: Last Vital Signs Temp 98.6 F 09/28/24 14:12 Pulse 93 09/28/24 14:12 BP 110/76 09/28/24 14:12 Pulse Ox 98 09/28/24 14:12 Oxygen Delivery Method Room Air 09/28/24 14:12 General: Non-toxic, NAD. Speaking full sentences. Skin: Warm dry throughout Eye: EOMI HENT: Airway patent. Uvula midline. minimal pharyngeal erythema without exudates or edema. No RN WOMEN SERVICES. Bilateral canals clear. TM has scaring bilaterally but are non-erythematous, non-bulging bilaterally. Slight fluid behind R TM. No TM perforation or hemotympanum noted. Respiratory: CTA bilaterally. No wheezes, rales or rhonchi Cardiac: RRR. No murmur MSK: Full ROM extremities. Neurology: Alert. No aphasia or facial droop. Gait without abnormality Psych: Good mood and affect Results AMB Rapid Strep AMB Rapid Strep Negative Last Edit by ARAM Kenny on 09/28/24 14:23 Results Reviewed Results Reviewed: Laboratory Last Values Strep Scn Rapid Clinic Negative 09/28/24 14:22 Assessment & Plan Assessment & Plan (1) URI (upper respiratory infection): Code(s): J06.9 - Acute upper respiratory infection, unspecified Qualifiers: URI type: unspecified viral URI Qualified Code(s): J06.9 - Acute upper respiratory infection, unspecified Plan: Patient seen and evaluated. strep negative flu/covid/rsv swab obtained and sent discussed tylenol/motrin for myalgias and fever control increase fluids/rest work note given Patient gave verbal understanding and had no additional questions or concerns at time of discharge All questions answered Orders: Orders SARS-CoV2/FLU/RSV Today R09.89 - Other specified symptoms and signs involving the circulatory and respiratory systems AMB Rapid Strep Screen Today Z13.9 - Encounter for screening, unspecified Coding Level of Care Code Est Pt Level 3 (29360) Diagnoses Viral upper respiratory tract infection J06.9 URI type: unspecified viral URI
[2024-09-28 14:12] VITALS: BP 110/76; PULSE 93; TEMP 37; O2SAT 98
== END 2024-09-28 14:30 | disposition home or self-care (01) ==
PROVIDERS: PCP Internal Medicine; Visit Provider Physician Assistant
DX: J06.9 Acute upper respiratory infection, unspecified (principal); Z13.9 Encounter for screening, unspecified

== ENCOUNTER 2024-09-28 14:04 | Outpatient (REF) | payer OTHER, SELFPAY ==
[2024-09-28 18:01] LABS: Influenza A PCR NEGATIVE (Negative); Influenza B PCR NEGATIVE (Negative); Resp Syncy Virus RNA Qual PCR NEGATIVE (Negative); SARS COV2 PCR INHOUSE NEGATIVE (Negative)
== END 2024-09-28 14:05 | disposition home or self-care (01) ==
LOC: HO.LNP 14:04
PROVIDERS: Physician Assistant; Visit Provider Internal Medicine
DX: J06.9 Acute upper respiratory infection, unspecified (principal); R09.89 Other specified symptoms and signs involving the circulatory and respiratory systems
CPT/HCPCS: 0241U; 87880; 99212

== ENCOUNTER 2024-10-04 09:27 | Outpatient (REF) | payer OTHER, SELFPAY ==
--- NOTE | ~2024-10-04 | FL_ITS ---
EXAMINATION: XR FLUOROSCOPY UPPER GI SERIES CLINICAL INFORMATION: 23 year female complaining of dysphagia with solids, says food getting stuck and not going down. COMPARISON: None TECHNIQUE: Fluoroscopic air contrast upper GI examination was performed utilizing standard techniques with thin and thick barium and effervescent granules. Numerous spot images were obtained. Several fluoroscopic image hold cine sequences were also obtained. FINDINGS: Study is limited as the patient could not tolerate the effervescent granules for optimal distention and thus visualization of the stomach and esophagus. UPPER GI SERIES: Lateral cine images of the oropharynx and hypopharynx demonstrate normal swallow mechanism with normal epiglottic inversion and soft palate elevation. No laryngeal penetration, glottic or subglottic aspiration identified. No nasopharyngeal reflux present. Hypopharyngeal structures appear normal without evidence of mass or diverticulum. There was no significant cricopharyngeal achalasia. The patient was noted to take very small sips and was encouraged to take larger sips, which she did reluctantly. Dual and single contrast images of the esophagus demonstrate normal caliber, contour, and mucosal pattern. No evidence of stricture, mass, or ulcerations identified. Esophageal peristalsis was normal. No evidence of hiatus hernia identified. Normal GE junction. No significant gastroesophageal reflux was seen during the course of the examination and on reflux views. Evaluation of the stomach is somewhat limited due to poor coating with contrast, and poor tolerance of the effervescent granules. Stomach otherwise demonstrated normal contour and mucosal pattern without evidence of mass, ulceration, or other abnormality. Contrast freely passed into the gastric antrum and duodenal bulb without delay. Single and air-contrast images of the duodenal bulb demonstrate no abnormality. The duodenal sweep has a normal appearance, course, and mucosal fold appearance. FLUOROSCOPY TIME: 2 minutes, 38 seconds Number of Spot Images:8 Number of cines obtained: 8 DOSE AREA PRODUCT: 23.13 uGy-m2 (microgray-meter squared) FL/FL barium swallow IMPRESSION: Mildly limited but normal upper GI examination. Electronically signed by: Richard Jack MD 10/04/2024 10:35 AM EDT
== END 2024-10-04 09:28 | disposition home or self-care (01) ==
LOC: HO.XRAY 09:27
PROVIDERS: PCP Internal Medicine; Visit Provider Internal Medicine
DX: R13.10 Dysphagia, unspecified (principal)
CPT/HCPCS: 74220

== ENCOUNTER → 2024-10-04 09:29 | Outpatient (BNV) | payer OTHER, SELFPAY | PROVIDERS: PCP Internal Medicine; Visit Provider Radiology Diagnostic Radiology | DX: R13.10 Dysphagia, unspecified (principal) | CPT/HCPCS: 74221 ==

== ENCOUNTER 2025-01-09 08:11 | Outpatient (REF) | payer OTHER, SELFPAY ==
--- NOTE | ~2025-01-09 | XR_ITS ---
EXAMINATION: XR KNEE, RIGHT CLINICAL INFORMATION: M25.569 - Pain in unspecified knee COMPARISON: None available. TECHNIQUE: AP view bilateral knees standing, lateral and patellofemoral views right knee. FINDINGS: LEFT Knee: No fracture or dislocation. No bone lesion. Preserved joint spaces. Normal soft tissues. RIGHT Knee: No fracture, dislocation, or suspicious bone lesion. Joint spaces are preserved. Normal knee and patellar alignment. Normal soft tissues. XR/XR knee RT 3V IMPRESSION: 1. Normal right knee. Electronically signed by: Richard Jack MD 01/09/2025 02:05 PM EDT
--- OUTSIDE RECORDS SUMMARY | 2025-01-10 08:43 | XMS_ITS | Encounter Summary ---
Author Organization [facility] Address [address] [place] [phone] Phone Care Team Providers Care Cosmetic Sales Consultant Name Role Phone Zoraida Alvarez MD Primary Care Provider Unavailabl e Encounter Details Date Type Department Care Team (Late st Contact Info) Description 01/08/2017 Conversion Encounter [address] [address] Social History Tobacco Use Types Packs/Day Years [...] on filedocumented in this encounter Care Teams Cosmetic Sales Consultant Relationship Specialty Start Date End Date Zoraida Alvarez MD PCP - General 01/02/17 documented as of this encounter
== END 2025-01-09 08:12 | disposition home or self-care (01) ==
LOC: HO.HOSX 08:11
PROVIDERS: Visit Provider Physician Assistant
DX: M23.91 Unspecified internal derangement of right knee (principal); M25.561 Pain in right knee
CPT/HCPCS: 73562; 99202

== ENCOUNTER 2025-01-09 13:31 | Outpatient (AMB) | payer OTHER, SELFPAY ==
--- NOTE | 2025-01-09 13:39 | A.OFFVIS_ITS ---
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 No history of trauma. Patient reports ongoing pain for about 3 month. She notices that her pain is through out the whole knee and it moves down to her mcbride. Patient states that her pain is worse when she is laying, sitting and going up and down the stairs. She has tried and failed Tylenol and NSAIDs with no relief. 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 Andrade is a 24-year-old female who presents to the office today for evaluation of right knee pain. She reports the pain has been present for the past 3 months. She denies any history of injury or trauma. She reports that the pain is located along the anterior aspect of the knee and will occasionally radiate down to the anterior aspect of the mcbride. She reports the pain that is worse with lying down as well as going up and down stairs. She has tried and failed Tylenol and NSAIDs with no relief. Of note, the patient does have low back pain which she reports does radiate to the right lower extremity. [facility] Medical History (Updated 01/09/25 @ 14:08 by Christy Cruz PA-C) ASCUS of cervix with negative high risk HPV New daily persistent headache Mild recurrent major depression ADD (attention deficit disorder) Surgical History No pertinent past surgical history Family History Mother No problems noted. Father No problems noted. Social History (Updated 01/09/25 @ 13:56 by Kishan Milan) Housing: Apartment Alcohol intake: current Alcohol intake frequency: holidays/special occasions only Alcohol type: wine and hard liquor Patient Tobacco Use Status: Never used Tobacco e-Cigarette/Vaping Use: Never Used Second Hand Smoke Exposure: Yes Substance Use Type: Marijuana service: No Current occupational status: employed Current occupation: [employer]/ left hand dominant Current occupational exposures/hazards: No Sexual orientation: Straight/Heterosexual Cognitive needs: No Hearing needs: No Vision needs: Yes Female Reproductive History Menstrual Age of Menarche: 13 Review of Systems Const All systems reviewed & are unremarkable except as noted in HPI and below Physical Exam Vital Signs: BMI result Body Mass Index 32.0 Const General: cooperative, healthy appearing and no acute distress Resp Effort & Inspection: normal respiratory effort and able to speak in complete sentences Extrem Other: Right knee: Normal to inspection. No ecchymosis, erythema, or joint effusion. No tenderness to palpation along the medial or lateral joint lines. Full knee extension and flexion. No pain with patellar grind. No laxity with patellar apprehension. Negative Lio's. Negative anterior drawer. NVI. Psych Appearance: grossly normal Mental Status: mental status grossly normal Attitude: cooperative Assessment & Plan Assessment & Plan (1) Patellar malalignment syndrome of right knee: Code(s): M23.91 - Unspecified internal derangement of right knee Category: Medical Plan Ms. Andrade is a 24-year-old female who presents to the office today for evaluation of right knee pain. She reports the pain has been present for the past 3 months. She denies any history of injury or trauma. She reports that the pain is located along the anterior aspect of the knee and will occasionally radiate down to the anterior aspect of the mcbride. She reports the pain that is worse with lying down as well as going up and down stairs. She has tried and failed Tylenol and NSAIDs with no relief. Of note, the patient does have low back pain which she reports does radiate to the right lower extremity. While the office today, we discussed the role of knee bracing as well as physical therapy. I provided the patient with a Genumed knee brace off the shelf. She was fit while in the office today. Additionally, I have placed an order for physical therapy. She will follow up PRN, sooner if needed. X-rays of the right knee which were obtained while in the office today and were reviewed by me, Christy Cruz PA-C, revealed no acute fracture dislocation. Orders: Orders XR knee RT 3V Today M25.569 - Pain in unspecified knee PT Evaluation and Treatment Today M23.91 - Unspecified internal derangement of right knee Coding Level of Care Code New Pt Level 3 (40540) Diagnoses Patellar malalignment syndrome of right knee M23.91
[2025-01-09 13:55] VITALS: BMI 32.0
--- OUTSIDE RECORDS SUMMARY | 2025-01-09 14:25 | XMS_ITS | Encounter Summary ---
Author Organization [facility] Address [address] [place] [id number] Phone Care Team Providers Care Food Service Coordinator Name Role Phone Zoraida Alvarez MD Primary Care Provider Unavailabl e Encounter Details Date Type Department Care Team (Late st Contact Info) Description 01/08/2017 Conversion Encounter [address] [id number] Social History Tobacco Use Types Packs/Day Years Used Date Smoking Tobacco: Never Comments:Never smoker Comments Unknown Sex and Gender Information Value Date Recorded Sex Assigned at Not on file Legal Sex Female 5:05 PM EDT Gender Identity Not on file Sexual Orientation Not on file documented as of this encounter Plan of Treatment Not on file documented as of this encounter Visit Diagnoses Not on filedocumented in this encounter Care Teams Food Service Coordinator Relationship Specialty Start Date End Date Zoraida Alvarez MD PCP - General 01/02/17 documented as of this encounter
== END 2025-01-09 14:20 | disposition home or self-care (01) ==
LOC: HO.HOS 13:32
PROVIDERS: PCP Internal Medicine; Visit Provider Physician Assistant
DX: M23.91 Unspecified internal derangement of right knee (principal)
CPT/HCPCS: 99203

== ENCOUNTER → 2025-01-09 13:36 | Outpatient (BNV) | payer OTHER, SELFPAY | PROVIDERS: Visit Provider Radiology Diagnostic Radiology | DX: M25.561 Pain in right knee (principal) | CPT/HCPCS: 73562 ==

== ENCOUNTER 2025-05-01 15:37 | Outpatient (AMB) | payer OTHER, SELFPAY ==
--- NOTE | 2025-05-01 16:03 | A.OFFVIS_ITS ---
Intake Visit Reasons: vaginal discharge Whipped Topping Finisher: Whipped Topping Finisher Present (Sangeeta) Accompanied by: Self / Same As Patient Allergies amoxicillin (AMOXICILLIN) Adverse Reaction (Intermediate, Verified 05/01/25 16:03) Diarrhea milk Adverse Reaction (Intermediate, Verified 05/01/25 16:03) WHOLE MILK- UPSET STOMACH Wellbutrin Allergy (Mild, Uncoded 09/28/24 14:11) unknown ANIMAL FAT Adverse Reaction (Intermediate, Uncoded 09/28/24 14:11) Diarrhea CHOCOLATE Adverse Reaction (Intermediate, Uncoded 09/28/24 14:11) DIARRHEA PEANUT BUTTER Adverse Reaction (Intermediate, Uncoded 09/28/24 14:11) Diarrhea HPI Comments Details: Presenting complaining of vulvovaginal discharge associated with foul odor and urinary frequency [facility] Medical History ASCUS of cervix with negative high risk HPV New daily persistent headache Mild recurrent major depression ADD (attention deficit disorder) Surgical History No pertinent past surgical history Family History Mother No problems noted. Father No problems noted. Social History Housing: Apartment Alcohol intake: current Alcohol intake frequency: holidays/special occasions only Alcohol type: wine and hard liquor Patient Tobacco Use Status: Never used Tobacco e-Cigarette/Vaping Use: Never Used Second Hand Smoke Exposure: Yes Substance Use Type: Marijuana service: No Current occupational status: employed Current occupation: [employer]/ left hand dominant Current occupational exposures/hazards: No Sexual orientation: Straight/Heterosexual Cognitive needs: No Hearing needs: No Vision needs: Yes Female Reproductive History Menstrual Age of Menarche: 13 Review of Systems Const All systems reviewed & are unremarkable except as noted in HPI and below Physical Exam General: Yes no CVA tenderness External Female Exam: normal external appearance and normal appearance of the urethra Speculum Exam - Vagina: normal appearance of the vagina, normal palpation, no lesions and no masses Speculum Exam - Cervix: normal appearance of the cervix, normal palpation, no lesions, no masses and nontender Bimanual exam- vagina & uterus: normal bimanual exam, normal palpation, uterine size normal, normal palpation, uterine shape normal, No Cervical tenderness present and non-tender Bimanual Exam- Adnexa, other: normal adnexae Back/Spine/Pelvis Back: no CVA tenderness Assessment & Plan Assessment & Plan (1) Bacterial vaginosis: Code(s): N76.0 - Acute vaginitis; B96.89 - Other specified bacterial agents as the cause of diseases classified elsewhere Category: Medical Plan: GC and chlamydia cultures with BV panel taken. Per CDC recommendation, will screen for STI, HepBs Ag, HIV, RPR, Hep C Ab ordered. Will treat with Flagyl 500 mg p.o. b.i.d. x 7 days, Instructions given to the patient to refrain from sexual activity or to use condoms consistently and correctly during the BV treatment regimen, not to douch, it might increase the risk for relapse, and to call if symptoms persist or recur. (2) Microscopic hematuria: Code(s): R31.29 - Other microscopic hematuria Category: Medical Plan: Urine dip showed microscopic hematuria, urine culture sent. Macrobid 100 mg p.o. b.i.d. for 5 days sent to the patient's pharmacy. Will repeat urine dip in 2 weeks. Discussed with the patient the possible causes of microscopic hematuria including but not limited to: interstitial cystitis, polyps, stones, masses, urethral inflammatory processes and others. If Urine Culture is negative and repeat urine dip in 2 weeks shows persistent microscopic hematuria, will proceed with CT abdomen/pelvis and urology referral. Instructions given the patient to schedule a 2 week urine dip follow-up appointment. All questions answered and the patient verbalized understanding. Orders: Orders Urine Culture Today B96.89 - Other specified bacterial agents as the cause of diseases classified elsewhere, N76.0 - Acute vaginitis, R31.29 - Other microscopic hematuria CT NG by PCR Vag/Cerv Today 96.89 - Other specified bacterial agents as the cause of diseases classified elsewhere, N76.0 - Acute vaginitis, R31.29 - Other microscopic hematuria Bacterial Vaginosis Panel Today 96.89 - Other specified bacterial agents as the cause of diseases classified elsewhere, N76.0 - Acute vaginitis, R31.29 - Other microscopic hematuria Medications: New metronidazole 500 mg PO BID 14 tabs 0RF 7 days nitrofurantoin monohyd/m-cryst 100 mg (Macrobid) 100 mg PO BID 10 caps 0RF 5 days Coding Level of Care Code Est Pt Level 3 (91186) Diagnoses Bacterial vaginosis N76.0; B96.89 Microscopic hematuria R31.29
--- OUTSIDE RECORDS SUMMARY | 2025-05-02 01:18 | XMS_ITS | Encounter Summary ---
Author Organization [facility] Address [address] [place] [address] Phone Care Team Providers Care Chainstitch Binder Name Role Phone Zoraida Alvarez MD Primary Care Provider Unavailabl e Encounter Details Date Type Department Care Team (Late st Contact Info) Description 02/15/2013 Documentation [facility] [place] [address] [place] [address] Family Medicine, Physician [facility] [address] [place], [place] [phone] Social History Tobacco Use Types Packs/Day Years Used Date Smoking Tobacco: Never Assessed Comments Unknown Sex and Gender Information Value Date Recorded Sex Assigned at Not on file Legal Sex Female 5:05 PM EDT Gender Identity Not on file Sexual Orientation Not on file documented as of this encounter Plan of Treatment Not on file documented as of this encounter Visit Diagnoses Not on filedocumented in this encounter Care Teams Chainstitch Binder Relationship Specialty Start Date End Date Zoraida Alvarez MD PCP - General 01/02/17 documented as of this encounter
--- OUTSIDE RECORDS SUMMARY | 2025-05-02 01:18 | XMS_ITS | Encounter Summary ---
Author Organization [facility] Address [address] [place] [address] Phone Care Team Providers Care Contract Programmer Name Role Phone Zoraida Alvarez MD Primary Care Provider Unavailabl e Encounter Details Date Type Department Care Team (Late st Contact Info) Description 09/06/2015 Documentation [facility] [place] [address] [place] [address] Family Medicine, Physician [facility] [place], [place] [phone] Social History Tobacco Use Types Packs/Day Years [...] on filedocumented in this encounter Care Teams Contract Programmer Relationship Specialty Start Date End Date Zoraida Alvarez MD PCP - General 01/02/17 documented as of this encounter
--- OUTSIDE RECORDS SUMMARY | 2025-05-02 01:18 | XMS_ITS | Clinical Summary ---
Author Organization [facility] Address [address] [place] [address] Phone Care Team Providers Care Bi Specialist Name Role Phone Zoraida Alvarez MD Primary Care Provider Unavailabl e Immunizations Immunization Administration Dates Next Due DTaP 01/09/2005, 1,06/02/2000, 000,01/23/2000 HPV, Quadrivalent 06/06/2014,03/23/2014,10/06/19 14 Hep A, ped/adol 06/06/2014,10/05/2013 Hep B, ped/adol 08/24/2000,1999,1999 Hib (HbOC) 08/24/2000,06/02/2000,01/23/2000 IPV 01/09/2005, 1,03/19/2000, 000 Influenza, injectable, quadrivalent 04/04/2015,1 Influenza, injectable, trivalent 04/24/2010 Influenza, intranasal, trivalent 08/17/2012 MMR 01/09/2005,10/27/2000 Meningococcal Conj (Menactra) MCV4P 08/17/2012 Pneumococcal Conjugate 06/22/2001,10/27/2000, Tdap 02/05/2012 Varicella 06/07/2008,10/27/2000 Family History Relation Name Status Comments Brother 1 Brother: Obesit y, Asthma Brother 2 Brother: Obesit y, Asthma Mother Mother: ADD/ADH D Other Family history of *Thrombophilia, Family history of Cancer, brain, No family history of Strabismus, No family history of *CVA/Stroke, No family history of Diabetes mellitus, No family history of Migraines, No family history of Hyperlipidemia, No family history of Deafness, No family history of *Sudden /[place] under 55, No family history of Seizure disorder, No family history of *Heart Disease Sister Alive Sister: Alive a nd well Social History Tobacco Use Types Packs/Day Years Used Date Smoking Tobacco: Never Comments:Never smoker Comments Unknown Sex and Gender Information Value Date Recorded Sex Assigned at Not on file Legal Sex Female 5:05 PM EDT Gender Identity Not on file Sexual Orientation Not on file Last Filed Vital Signs Vital Sign Reading Time Taken Comments Blood Pressure 114/68 11/29/2015 12:00 AM EDT Pulse 72 11/29/2015 12:00 AM EDT Temperature 36.7 C (98.1 F) 11/29/2015 12:00 AM EDT Respiratory Rate - - Oxygen Saturation - - Inhaled Oxygen Concentration - - Weight 93.1 kg (205 lb 3.2 oz) 11/29/2015 12:00 AM EDT Height 167.6 cm (5' 6 ) 11/29/2015 12:00 AM EDT Body Mass Index 33.12 11/29/2015 12:00 AM EDT Plan of Treatment Health Maintenance Due Date Last Done Comments DTaP,Tdap,and Td Vaccines (6 - Td or Tdap) 02/04/2022 02/05/2012, 01/09/2005, 08/24/2000, Additional history exists Influenza Vaccines (#1) 2024 04/04/20 15, 03/23/2014, 08/17/2012, Additional history exists COVID-19 Vaccine ( - season) 2025 HIB Vaccines Aged Out 08/24/2000, 01/2001, 01/23/2000 No longer eligible based on patient's age to complete this topic Hepatitis B Vaccines Completed 08/24/2000, 1999, 1999 Pneumococcal Vaccine Completed 06/22/2001, 10/27/2000, 01/23/2000 IPV Vaccines Completed 01/09/2005, 01/2001, 03/19/2000, Additional history exists MMR Vaccines Completed 01/09/2005, 10/27/2000 Varicella Vaccines Completed 06/07/2008, 10/27/2000 Meningococcal Vaccine Aged Out 08/17/2012 No jahaira bernardo eligible based on patient's age to complete this topic HPV Vaccines Completed 06/06/2014, 02/24, 10/05/2013 Hepatitis A Vaccines Completed 06/06/2014, 10/06/19 14 Men B Vaccine Aged Out No longer kaylin keller based on patient's age to complete this topic Procedures * Due to [place] [employer] law, this organization might not be sharing sensitive test results. Procedure Name Priority Date/Time Associated Diagnosis Comments CHLAMYDIA AND GONORRHEA, AMPLIFIED Routine 10/30/2014 4:53 PM EDT from Last 3 Months or Most Recently Relevant to Health Maintenance Results * Due to [place] [employer] law, this organization might not be sharing sensitive test results. * Chlamydia and Gonorrhoea, Amplified (10/30/2014 4:53 PM EDT) URINE CHLAMYDIA AMP PROBE NEGATIVE [facility] Comment: No Chlamydia Trachomatis RNA detected in this patient's sample (REFERENCE RANGE/NORMAL VALUE: NOT DETECTED) URINE GC AMP PROBE NEGATIVE [facility] Comment: No Neisseria Gonorrhoeae RNA detected in this patient's sample (REFERENCE RANGE/NORMAL VALUE: NOT DETECTED) NOTE: This test uses engineering specialist-mediated amplification method to detect rRNA from C.Trachomatis and N.Gonorrhoeae. A negative result does not preclude infection. In the case of a negative urine result, testing of an endocervical(female) or urethral(male) specimen is recommended if there is high clinical suspicion of infection. The performance characteristics of this test have not been evaluated in children. The Aptima Combo2 assay is not intended for the evaluation of suspected sexual abuse or for other medico-legal indications. The ordering provider should assess if the patient had consensual sex without risk of sexual abuse. Consult the [facility] if needed. Contact phone number . Therapeutic failure or success cannot be determined with the Aptima Combo2 assay since nucleic acid may persist following appropriate antimicrobial therapy. The Centers for Disease Control and Prevention (CDC) recommends confirmatory retesting using culture or a different nucleic acid amplification test when positive results occur, if indicated. Testing performed or reported by [facility], a Service of [facility], [address] [place] [address] Michele James MD, PhD, Human Factors Advisor Lead 10/30/2014 4:53 PM EDT [facility] - 10/30/2014 4:53 PM EDT URINE CHLAMYDIA GC AMP PROBE us Zoraida Alvarez MD LAB MICROBIOLOGY - GENERAL ORDER NADJA Final Result [facility] [address] [place] [id number], [place] from Last 3 Months or Most Recently Relevant to Health Maintenance Care Teams Bi Specialist Relationship Specialty Start Date End Date Zoraida Alvarez MD PCP - General 01/02/17
--- OUTSIDE RECORDS SUMMARY | 2025-05-02 01:18 | XMS_ITS | Encounter Summary ---
Author Organization [facility] Address [address] [place] [address] Phone Care Team Providers Care Insurance Loss Assessor Name Role Phone Zoraida Alvarez MD Primary Care Provider Unavailabl e Encounter Details Date Type Department Care Team (Late st Contact Info) Description 01/08/2017 Conversion Encounter [address] [address] Social History Tobacco Use Types Packs/Day Years [...] on filedocumented in this encounter Care Teams Insurance Loss Assessor Relationship Specialty Start Date End Date Zoraida Alvarez MD PCP - General 01/02/17 documented as of this encounter
== END 2025-05-01 16:22 | disposition home or self-care (01) ==
LOC: HO.HWS 15:38
PROVIDERS: PCP Internal Medicine; Visit Provider Obstetrics & Gynecology
DX: N76.0 Acute vaginitis (principal); B96.89 Other specified bacterial agents as the cause of diseases classified elsewhere; R31.29 Other microscopic hematuria
CPT/HCPCS: 99213

== ENCOUNTER 2025-05-01 15:37 | Outpatient (REF) | payer OTHER, SELFPAY ==
[2025-05-01 23:11] LABS: Bacterial Vaginosis PCR POSITIVE (Negative); Candida Group PCR NOT DETECTED (Not Detect); Candida glab krusei PCR NOT DETECTED (Not Detect); Trichomonas vaginalis PCR NOT DETECTED (Not Detect)
[2025-05-01 23:42] LABS: CT PCR NOT DETECTED (Not Detect.); NG PCR NOT DETECTED (Not Detect.)
== END 2025-05-01 15:38 | disposition home or self-care (01) ==
LOC: HO.LAB 15:37
PROVIDERS: PCP Internal Medicine; Visit Provider Obstetrics & Gynecology
DX: N76.0 Acute vaginitis (principal); B96.89 Other specified bacterial agents as the cause of diseases classified elsewhere; R31.29 Other microscopic hematuria; Z20.2 Contact with and (suspected) exposure to infections with a predominantly sexual mode of transmission
CPT/HCPCS: 81002; 81515; 87086; 87491; 87591; 99212

== ENCOUNTER 2025-05-17 09:26 | Outpatient (AMB) | payer OTHER, SELFPAY ==
[2025-05-17 09:31] VITALS: BP 136/74; BMI 29.3
--- NOTE | 2025-05-17 09:31 | MHC.OFFVIS ---
Vital Signs 05/17/25 09:31 Height 5 ft 6 in Weight 181 lb 4 oz BMI 29.3 BP 136/74 Blood Pressure Location Lt brachial Position Sitting Intake Visit Reasons: Urine dip Allergies amoxicillin (AMOXICILLIN) Adverse Reaction (Intermediate, Verified 05/17/25 09:31) Diarrhea milk Adverse Reaction (Intermediate, Verified 05/17/25 09:31) WHOLE MILK- UPSET STOMACH Wellbutrin Allergy (Mild, Uncoded 05/17/25 09:31) unknown ANIMAL FAT Adverse Reaction (Intermediate, Uncoded 05/17/25 09:31) Diarrhea CHOCOLATE Adverse Reaction (Intermediate, Uncoded 05/17/25 09:31) DIARRHEA PEANUT BUTTER Adverse Reaction (Intermediate, Uncoded 05/17/25 09:31) Diarrhea HPI Comments Details: Presenting for repeat urine dip last visit urine dip showed microscopic hematuria, urine culture was negative [facility] Medical History ASCUS of cervix with negative high risk HPV New daily persistent headache Mild recurrent major depression ADD (attention deficit disorder) Surgical History No pertinent past surgical history Family History Mother No problems noted. Father No problems noted. Social History Housing: Apartment Alcohol intake: current Alcohol intake frequency: holidays/special occasions only Alcohol type: wine and hard liquor Patient Tobacco Use Status: Never used Tobacco e-Cigarette/Vaping Use: Never Used Second Hand Smoke Exposure: Yes Substance Use Type: Marijuana service: No Current occupational status: employed Current occupation: [employer]/ left hand dominant Current occupational exposures/hazards: No Sexual orientation: Straight/Heterosexual Cognitive needs: No Hearing needs: No Vision needs: Yes Female Reproductive History Menstrual Age of Menarche: 13 Review of Systems Const All systems reviewed & are unremarkable except as noted in HPI and below Reports as per HPI and Reports no additional complaints GI Reports no additional complaints Reports no additional complaints Physical Exam Vital Signs: Last Vital Signs BP 136/74 05/17/25 09:31 BMI result Body Mass Index 29.3 Results AMB Urinalysis, Automated UA Leukoctes 0 Robert/uL Last Edit by Wanda Holden CMA on 05/17/25 09:37 UA Nitrite Negative Last Edit by Wanda Holden CMA on 05/17/25 09:37 UA Urobilinogen 3.5 mg/dL Last Edit by Wanda Holden CMA on 05/17/25 09:37 UA Protein 0 mg/dL Last Edit by Wanda Holden CMA on 05/17/25 09:37 UA pH 5.5 Last Edit by Wanda Holden CMA on 05/17/25 09:37 UA Blood 80 Kojo/uL Last Edit by Wanda Holden CMA on 05/17/25 09:37 UA Specific [place] 1.030 Last Edit by Wanda Holden, EMILY on 05/17/25 09:37 UA Ketone Negative Last Edit by Wanda Holden CMA on 05/17/25 09:37 UA Bilirubin 0 mg/dL Last Edit by Wanda Holden CMA on 05/17/25 09:37 UA Glucose 0 mg/dL Last Edit by Wanda Holden CMA on 05/17/25 09:37 Results Reviewed Results Reviewed: Laboratory Last Values Urine pH (Auto) 5.5 05/17/25 09:34 Specific [place] (Auto) 1.030 05/17/25 09:34 Urine Protein (Auto) 0 mg/dL 05/17/25 09:34 Glucose (UA)(Auto) 0 mg/dL 05/17/25 09:34 Urine Ketones (Auto) Negative 05/17/25 09:34 Urine Blood (Auto) 80 Kojo/uL 05/17/25 09:34 Urine Nitrite (Auto) Negative 05/17/25 09:34 Urine Bilirubin (Auto) 0 mg/dL 05/17/25 09:34 Urine Urobilinogen (Auto) 3.5 mg/dL 05/17/25 09:34 Leukocyte Esterase (Auto) 0 Robert/uL 05/17/25 09:34 Assessment & Plan Assessment & Plan (1) Microscopic hematuria: Code(s): R31.29 - Other microscopic hematuria Category: Medical Plan: Repeat urine dip showed persistent microscopic hematuria. Discussed with the patient the possible causes of microscopic hematuria including but not limited to: interstitial cystitis, polyps, stones, masses, urethral inflammatory processes and others. CT abdomen/pelvis and urology referral orders placed. Instructed the patient to call our office back in case a referral appointment is not scheduled, missed or canceled so that we will assist on rescheduling another appointment, the patient verbalized understanding agreed with the plan. Orders: Orders AMB Urinalysis Automated Today Z13.9 - Encounter for screening, unspecified CT abdomen pelvis wo/w IV con Today R31.29 - Other microscopic hematuria Referrals Urology Referral R31.29 - Other microscopic hematuria Coding Level of Care Code Est Pt Level 3 (08919) Diagnoses Microscopic hematuria R31.29
--- OUTSIDE RECORDS SUMMARY | 2025-05-17 09:32 | XMS_ITS | Clinical Summary ---
Author Organization [facility] Address [address] [place] [address] Phone Care Team Providers Care Spray Gunner Name Role Phone Zoraida Alvarez MD Primary [...] of Deafness, No family history of *Sudden /[place] under 55, No family history of Seizure [...] complete this topic Procedures * Due to [place] [employer] law, this organization might not be sharing sensitive test results. Procedure Name Priority Date/Time Associated Diagnosis Comments CHLAMYDIA AND GONORRHEA, AMPLIFIED Routine 10/30/2014 4:53 PM EDT from Last 3 Months or Most Recently Relevant to Health Maintenance Results * Due to [place] [employer] law, this organization might not be sharing sensitive test results. * Chlamydia and Gonorrhoea, Amplified (10/30/2014 4:53 PM EDT) URINE CHLAMYDIA AMP PROBE NEGATIVE [facility] Comment: No Chlamydia Trachomatis RNA detected in this patient's sample (REFERENCE RANGE/NORMAL VALUE: NOT DETECTED) URINE GC AMP PROBE NEGATIVE [facility] Comment: No Neisseria Gonorrhoeae RNA detected in this patient's sample (REFERENCE RANGE/NORMAL VALUE: NOT DETECTED) NOTE: This test uses talent management manager-mediated amplification method to detect rRNA from C.Trachomatis [...] without risk of sexual abuse. Consult the [facility] if needed. Contact phone number . Therapeutic failure or success cannot be determined with the Aptima Combo2 assay since nucleic acid may persist following appropriate antimicrobial therapy. The Centers for Disease Control and Prevention (CDC) recommends confirmatory retesting using culture or a different nucleic acid amplification test when positive results occur, if indicated. Testing performed or reported by [facility], a Service of [facility], [address] [place] [address] Michele James MD, PhD, Turnaround Engineer 10/30/2014 4:53 PM EDT [facility] - 10/30/2014 4:53 PM EDT URINE CHLAMYDIA GC AMP PROBE us Zoraida Alvarez MD LAB MICROBIOLOGY - GENERAL ORDER NADJA Final Result [facility] [address] [place] [id number], [place] from Last 3 Months or Most Recently Relevant to Health Maintenance Care Teams Spray Gunner Relationship Specialty Start Date End Date Zoraida Alvarez MD PCP - General 01/02/17
--- OUTSIDE RECORDS SUMMARY | 2025-05-17 09:32 | XMS_ITS | Encounter Summary ---
Author Organization [facility] Address [address] [place] [address] Phone Care Team Providers Care Boom Truck Driver Name Role Phone Zoraida Alvarez MD Primary Care Provider Unavailabl e Encounter Details Date Type Department Care Team (Late st Contact Info) Description 01/08/2017 Conversion Encounter [address] [address] Social History Tobacco Use Types Packs/Day Years [...] on filedocumented in this encounter Care Teams Boom Truck Driver Relationship Specialty Start Date End Date Zoraida Alvarez MD PCP - General 01/02/17 documented as of this encounter
--- OUTSIDE RECORDS SUMMARY | 2025-05-17 09:32 | XMS_ITS | Encounter Summary ---
Author Organization [facility] Address [address] [place] [address] Phone Care Team Providers Care Claims Supervisor Name Role Phone Zoraida Alvarez MD Primary Care Provider Unavailabl e Encounter Details Date Type Department Care Team (Late st Contact Info) Description 02/15/2013 Documentation [facility] [place] [address] [place] [address] Family Medicine, Physician [facility] [address] [place], [place] [phone] Social History Tobacco Use Types Packs/Day Years [...] on filedocumented in this encounter Care Teams Claims Supervisor Relationship Specialty Start Date End Date Zoraida Alvarez MD PCP - General 01/02/17 documented as of this encounter
--- OUTSIDE RECORDS SUMMARY | 2025-05-17 09:32 | XMS_ITS | Encounter Summary ---
Author Organization [facility] Address [address] [place] [address] Phone Care Team Providers Care Scrap Worker Name Role Phone Zoraida Alvarez MD Primary Care Provider Unavailabl e Encounter Details Date Type Department Care Team (Late st Contact Info) Description 09/06/2015 Documentation [facility] [place] [address] [place] [address] Family Medicine, Physician [facility] [place], [place] [phone] Social History Tobacco Use Types Packs/Day Years [...] on filedocumented in this encounter Care Teams Scrap Worker Relationship Specialty Start Date End Date Zoraida Alvarez MD PCP - General 01/02/17 documented as of this encounter
== END 2025-05-17 09:56 | disposition home or self-care (01) ==
LOC: HO.HWS 09:27
PROVIDERS: PCP Internal Medicine; Visit Provider Obstetrics & Gynecology
DX: Z13.9 Encounter for screening, unspecified (principal); R31.29 Other microscopic hematuria
CPT/HCPCS: 99213

== ENCOUNTER → 2025-05-17 09:26 | Outpatient (BNVA) | payer OTHER, SELFPAY | PROVIDERS: PCP Internal Medicine; Visit Provider Obstetrics & Gynecology | DX: R31.29 Other microscopic hematuria (principal) | CPT/HCPCS: 81003; 99212 ==